=== PATIENT | female | born 1965 | race Caucasian/White ===

== ENCOUNTER → 2020-01-11 18:07 | Outpatient (CLI) | payer OTHER, SELFPAY ==
--- NOTE | ~2020-01-11 | MM_ITS ---
EXAMINATION: MM screening elin BI w all HISTORY: Screening mammogram TECHNIQUE: Craniocaudal and mediolateral oblique 3-D tomosynthesis images were obtained and synthetic 2-D images were generated. CAD analysis was submitted and interpreted. COMPARISON: 11/04/2018, 05/27/2017 bilateral digital screening mammogram examinations BREAST PARENCHYMAL COMPOSITION: There are scattered areas of fibroglandular density. FINDINGS: There are multiple benign calcified oil cysts in the inner right breast . Possible spiculated high density 6 mm lesion in the outer mid left breast (craniocaudal Tomosynthesis image 45/74) versus summation shadow.. Diagnostic left mammogram and left breast ultrasound examinat ion are recommended. Otherwise there is no evidence of suspicious mass, calcification, or architectural distortion to sugg est malignancy in either breast. There has been no other suspicious interval change. IMPRESSION: 1. Possible 6 mm spiculated mass in the outer mid left breast 2. Diagnostic left mammogram and left breast ultrasound examination are recommended. BI-RADS Category 0: Incomplete: Needs additional imaging evaluation. Reviewed, dictated and finalized at location A. ER BEARING INSPECTOR IMPRESSION: 1. Possible 6 mm spiculated mass in the outer mid left breast 2. Diagnostic left mammogram and left breast ultrasound examination are recomme nded. BI-RADS Category 0: Incomplete: Needs additional imaging evaluation.
== END ==
PROVIDERS: PCP Family Medicine; Visit Provider Obstetrics & Gynecology Gynecology
DX: Z12.31 Encounter for screening mammogram for malignant neoplasm of breast (principal); R92.8 Other abnormal and inconclusive findings on diagnostic imaging of breast
CPT/HCPCS: 77063; 77067

== ENCOUNTER → 2020-02-01 08:16 | Outpatient (CLI) | payer OTHER, SELFPAY ==
--- NOTE | ~2020-02-01 | MMUS_ITS ---
EXAMINATION: MM diagnostic mammo unilat LT, US breast LT limited HISTORY: Possible 6 mm spiculated mass suggested in the outer mid left breast on 01/11/2020 bilateral digital screening mammogram TECHNIQUE: Additional 3-D tomosynthesis images of the left breast were performed and synthetic 2-D im ages were generated. CAD analysis was submitted and interpreted. High resolution upper outer quadrant left breast ultrasound was performed. COMPARISON: 01/11/2020 bilateral digital screening mammogram FINDINGS: MAMMOGRAPHIC FINDINGS: A 5 mm subtle focal irregularity is suggested in the upper outer quadrant of the left breast (cranioc audal Tomosynthesis image 38/68). ULTRASOUND: 2:00 3 cm from nipple: There is a focal circumscribed approximately 2 x 2.6 x 4 mm opacity without in ternal vascularity or suspicious shadowing. IMPRESSION: 1. Probably benign mammographic and ultrasound findings, upper outer quadrant 2. 6 month diagnostic left mammogram and upper outer quadrant left breast ultrasound examination are recommended. BI-RADS category 3, probably benign findings. Reviewed, dictated and finalized at location A. D CERTIFIED ARTS THERAPIST IMPRESSION: 1. Probably benign mammographic and ultrasound findings, upper outer quadrant 2. 6 month diagnostic left mammogram and upper outer quadrant left breast ultra sound examination are recommended. BI-RADS category 3, probably benign findings.
== END ==
PROVIDERS: PCP Family Medicine; Visit Provider Obstetrics & Gynecology Gynecology
DX: R92.8 Other abnormal and inconclusive findings on diagnostic imaging of breast (principal)
CPT/HCPCS: 76642; 77065

== ENCOUNTER → 2020-07-13 07:50 | Outpatient (CLI) | payer BC, SELFPAY ==
--- NOTE | ~2020-07-13 | MMUS_ITS ---
EXAMINATION: MM diagnostic elin LT w all, US breast LT limited HISTORY: Follow-up left breast mass TECHNIQUE: Additional 3-D tomosynthesis images of the left breast were performed and synthetic 2-D im ages were generated. CAD analysis was submitted and interpreted. High resolution Limited left breast ultrasound was performed. COMPARISON: Comparison to multiple prior studies sequentially, with oldest reviewed study dated 04/23. BREAST PARENCHYMAL COMPOSITION: Breast composed of scattered areas of fibroglandular density. FINDINGS: MAMMOGRAPHIC FINDINGS: There are no suspicious masses, calcifications or architectural distortion in the left breast to sugg est malignancy. Stable left axillary lymph nodes. ULTRASOUND: Limited left breast ultrasound: At 2:00, 3 cm from the nipple, there is a small hypoechoic 3 mm mass unchanged from prior examination, likely benign. IMPRESSION: 1. Probable benign 3 mm left breast mass at 2:00, 3 cm from the nipple. 2. Recommend 6 month follow-up left breast ultrasound and bilateral screening mammogram. BI-RADS category 3, probably benign findings. Reviewed, dictated and finalized at location A. IMPRESSION: 1. Probable benign 3 mm left breast mass at 2:00, 3 cm from the nipple. 2. Recommend 6 month follow-up left breast ultrasound and bilateral screening m ammogram. BI-RADS category 3, probably benign findings.
== END ==
PROVIDERS: Visit Provider Obstetrics & Gynecology Gynecology
DX: R92.8 Other abnormal and inconclusive findings on diagnostic imaging of breast (principal)
CPT/HCPCS: 76642; 77061; 77065; G0279

== ENCOUNTER → 2021-01-18 07:59 | Outpatient (CLI) | payer BC, SELFPAY ==
--- NOTE | ~2021-01-18 | MM_ITS ---
EXAMINATION: MM screening elin BI w all HISTORY: Screening TECHNIQUE: Craniocaudal and mediolateral oblique 3-D tomosynthesis images were obtained and synthetic 2-D images were generated. CAD analysis was submitted and interpreted. COMPARISON: Comparison to multiple prior studies sequentially, with oldest reviewed study dated 05/04. BREAST PARENCHYMAL COMPOSITION: Breast composed of scattered areas of fibroglandular density. FINDINGS: There is no evidence of suspicious mass, calcification, or architectural distortion to sugg est malignancy in either breast. There has been no suspicious interval change. IMPRESSION: 1. No mammographic evidence of malignancy. 2. Recommend routine screening mammography in one year. BI-RADS Category 1: Negative Reviewed, dictated and finalized at location A. TRY PATHOLOGIST
--- NOTE | ~2021-01-18 | US_ITS ---
US breast LT limited INDICATION: Follow-up left breast mass TECHNIQUE: Dedicated left limited breast ultrasound COMPARISON: 07/13/2020 FINDINGS: The left breast is composed of normal heterogeneous echotexture without focal solid or cyst ic mass. IMPRESSION: 1: Normal limited left breast ultrasound. BI-RADS CATEGORY 1 - NEGATIVE Reviewed, dictated and finalized at location A. PEDDLER
== END ==
PROVIDERS: Visit Provider Obstetrics & Gynecology Gynecology
DX: Z12.31 Encounter for screening mammogram for malignant neoplasm of breast (principal); R92.8 Other abnormal and inconclusive findings on diagnostic imaging of breast
CPT/HCPCS: 76642; 77063; 77067

== ENCOUNTER 2021-05-27 08:44 | Outpatient (CLI) | payer BC, SELFPAY ==
--- NOTE | ~2021-05-27 | DEXA_ITS ---
Bone Density Report Name: BRIANNA MATTHEWS Age: 55 Sex: Female Ethnicity: White Date of : 1965 Indication: postmenopausal; screening for osteoporosis; parental hip fracture; Referring Provider: CAM RAMOS Study: Bone densitometry was performed. Exam Date: May 27, 2021 Accession number: [id number] Bone Density: Region BMD T-score Z-score Classification AP Spine(L1-L4) 1.057 0.1 1.3 Normal Femoral Neck (Left) 0.766 -0.7 0.4 Normal Total Hip (Left) 0.899 -0.4 0.4 Normal Femoral Neck (Right) 0.789 -0.5 0.6 Normal Total Hip (Right) 0.895 -0.4 0.4 Normal Total Hip Mean 0.897 -0.4 0.4 Normal World Health Organization criteria for BMD impression classify patients as: Normal (T-score at or above -1.0), Osteopenia (T-score between -1.0 and -2.5), or Osteoporosis (T-score at or below -2.5). 10-year Fracture Risk: FRAX not reported because: All T-scores for Spine Total, Hip Total, Femoral Neck at or above -1.0 Clinical Information Provided by Patient: Parent has had a hip fracture Has used the following medications: HRT (i.e. estrogen/hormone therapy) Patient maximum height was 64 Menopause Age: 51 Drinks caffeinated beverages Onset of menses at age 11 Number of children 1 Impression: The patient has normal bone mass. The patient has risk factors, including: parental hip fracture. Discussion: BONE DENSITY IS ABOVE THE MINIMUM DESIRABLE LEVEL AT ALL SKELETAL SITES TESTED. This patient?s bone mineral density is above the minimum desirable level (T-score -1.0 or better) at all sites measured. The patient should follow a healthful lifestyle (good nutrition with adequate calcium and vitamin D, and appropriate weight-bearing exercise). Follow-Up: Consider repeating this study in 5 years or sooner if there is some new clinical indication. Reported by: AMPARO on 05/29/2021 2:49:00 PM. Reviewed, dictated and finalized at location AT[place]
== END 2021-05-27 08:45 | disposition home or self-care (01) ==
PROVIDERS: Visit Provider Obstetrics & Gynecology Gynecology
DX: Z78.0 Asymptomatic menopausal state (principal)
CPT/HCPCS: 77080

== ENCOUNTER → 2022-03-23 13:42 | Outpatient (CLI) | payer BC, SELFPAY ==
--- NOTE | ~2022-03-23 | MM_ITS ---
EXAMINATION: MM screening elin BI w all HISTORY: Screening mammogram TECHNIQUE: Craniocaudal and mediolateral oblique 3-D tomosynthesis images were obtained and synthetic 2-D images were generated. CAD analysis was submitted and interpreted. COMPARISON: 01/18/2021 bilateral screening mammogram and limited left breast ultrasound examination 07/13/2020 diagnostic left mammogram and limited left breast ultrasound 02/01/2020 diagnostic left mammogram and limited left breast ultrasound 01/11/2020 bilateral screening mammogram BREAST PARENCHYMAL COMPOSITION: There are scattered areas of fibroglandular density. FINDINGS: There is no evidence of suspicious mass, calcification, or architectural distortion to sugg est malignancy in either breast. There has been no suspicious interval change. IMPRESSION: 1. No mammographic evidence of malignancy. 2. Recommend routine screening mammography in one year. BI-RADS Category 1: Negative Reviewed, dictated and finalized at location A. AL FUNDS AGENT
== END ==
PROVIDERS: PCP Family Medicine; Visit Provider Obstetrics & Gynecology Gynecology
DX: Z12.31 Encounter for screening mammogram for malignant neoplasm of breast (principal)
CPT/HCPCS: 77063; 77067

== ENCOUNTER 2022-07-10 00:16 | Day surgery (SDC) | payer BC, SELFPAY ==
[2022-07-10 08:41] VITALS: BP 140/74; PULSE 68; RESP 16; TEMP 36.3; O2SAT 100
[2022-07-10] MEDS: LACTATED RINGERS 1,000 ML 150 ML IV CONT (08:56)
--- NOTE | 2022-07-10 08:59 | P.PNAN_ITS ---
Anes - Initial Pre Proc Eval Procedure: Operation Date: 07/10/22 10:00 Proposed Procedures p Esophagogastroduodenoscopy - Anjel Palacio MD Date/Time: 07/10/22 08:59 Surgeon: Anjel Palacio MD Pre Op Diagnosis: LUQP, belching,abdominal distension,heartburn Patient Data Age: 56 Gender: F Height: 1.63 m Weight: 79.1 kg Last Vital Signs Temp 36.3 C L 07/10/22 08:41 Pulse 68 07/10/22 08:41 Resp 16 07/10/22 08:41 BP 140/74 07/10/22 08:41 Pulse Ox 100 07/10/22 08:41 O2 Del Method Room Air 07/10/22 08:41 Allergies Allergy/AdvReac Type Severity Reaction Status Date / Time Sulfa (Sulfonamide Allergy Intermediate Rash Verified 07/10/22 08:40 Antibiotics) Home Medications Medication Instructions Recorded Confirmed Type lisinopril 20 mg tablet 20 mg PO DAILY 06/14/22 06/22/22 History norethindrone 0.4 mg-ethinyl 1 tablet PO DAILY 06/14/22 06/22/22 History estradiol 35 mcg tablet multivit with minerals-iron 18 1 tablet PO DAILY 06/22/22 06/22/22 History mg-folic ac 400 mcg-vit K 25 mcg tablet (Adults Multivitamin) omega 3-zzt-grx-fish oil 1,200 mg 1 cap PO DAILY 06/22/22 06/22/22 History (144 mg-216 mg) capsule (Fish Oil) Patient hx anesthesia problems: none Family hx anesthesia problems: none Results Review: All pre-operative results and documents have been reviewed as part of the pre- operative evaluation. [facility] Past Medical History Medical History Belching HTN (hypertension) Surgical History Surgical History [place] teeth extracted Family History Family History Father Family history of elevated blood lipids Family history of heart disease in male family member before age 55 Other Family history of cardiovascular disease Family history of malignant neoplasm Social History Social History Smoking status: Never smoker Smoking end date: 02/11/89 Alcohol intake: current Drinks per week: 2 Alcohol use details: DRINKS Substance use: never Substance use type: does not use Living arrangements: with family Spiritual care concerns: No Anes - Eval Final PreProcedure Day of Procedure 07/10/22 08:59 Patient weight: overweight Heart: regular rate and rhythm Lungs: clear to auscultation Airway: Mallampati scale class II Neurological: alert and oriented Last oral intake: >/= 8 hours ASA classification: II Emergent: no Anesthetic plan: proceed Anesthesia type and monitoring: general GIVS and standard monitoring Results Review: All pre-operative results and documents have been reviewed as part of the pre- operative evaluation. Informed Consent: The patient's anesthetic plan and its attendant risks and benefits were discussed with the patient/family/POA. Questions were solicited and answers provided to the satisfaction of the patient/family/POA.
--- NOTE | 2022-07-10 09:02 | WPDHPUPDATE1 ---
History and Physical Update Update Date/Time: 07/10/22 09:02 patient presents for EGD. Has complaints of left upper quadrant gas, belching, acid regurgitation. Dyspepsia. She has not yet tried lrdy-gbw-lqgbmsn antacids nor Pepcid nor Prilosec type medications. EGD requested because of ongoing pain. These medications suggested to the patient today. History and Physical has been reviewed, including an updated exam of the patient. There are NO changes in the patient's condition. Risks, benefits, and alternatives have been discussed and questions answered. Patient agrees to proceed with procedure.
[2022-07-10 09:19] VITALS: BP 95/48; PULSE 65; RESP 17; O2SAT 97
[2022-07-10 09:29] VITALS: BP 101/54; PULSE 63; RESP 19; O2SAT 99
[2022-07-10 09:39] VITALS: BP 120/71; PULSE 62; RESP 16; O2SAT 99
== END 2022-07-10 09:45 | disposition home or self-care (01) ==
PROVIDERS: PCP Family Medicine; Visit Provider Internal Medicine Gastroenterology
PROC: 0DJ08ZZ Inspection of Upper Intestinal Tract, Via Natural or Artificial Opening Endoscopic (ICD-10-PCS; CPT 43235; principal; 2022-07-10 10:00)
DX: K30 Functional dyspepsia (principal); R14.2 Eructation; K21.9 Gastro-esophageal reflux disease without esophagitis; I10 Essential (primary) hypertension
CPT/HCPCS: 43239; 87081; J2704; J7120

== ENCOUNTER 2023-01-14 08:15 | Observation (INO) | payer BC, SELFPAY ==
[2023-01-14] VITALS (28 sets, daily range): BP systolic 117–165; BP diastolic 57–88; PULSE 67–97; RESP 12–25; TEMP 36.4–37.1; O2SAT 97–100
--- NOTE | ~2023-01-14 | XR_ITS ---
EXAMINATION: XR chest 1V portable 01/14/2023 09:35 INDICATION: Stroke PROCEDURE: AP portable chest COMPARISON: No prior studies for comparison. FINDINGS: The lungs are clear. The cardiomediastinal silhouette is within normal limits. There are no pleural effusions. There is no pneumothorax suspected. IMPRESSION: 1: NO ACUTE CARDIOPULMONARY DISEASE. Reviewed, dictated and finalized at location B. TUBE RELEASER
--- NOTE | ~2023-01-14 | MR_ITS ---
EXAMINATION: MR brain/brain stem wo/w con DATE: 01/15/2023 08:14 CATHODE RAY TUBE SALVAGE PROCESSOR INDICATION: Stroke TECHNIQUE: Magnetic resonance imaging (MRI) of the brain and brainstem was performed without and with 10 cc MultiHance intravenous contrast. Sequences included sagittal and axial T1-weighted SE, axial d iffusion-weighted FS SE, axial T2*-weighted GRE, axial T2-weighted FLAIR Propeller, and axial T2-weig hted Propeller. Apparent diffusion coefficient (ADC) maps were created. COMPARISON: CTA brain/carotid dated 01/14/2023 FINDINGS: The brain volume and ventricular system are within normal limits. The brain parenchymal si gnal intensity pattern and perez/white matter is normal and there is no evidence of hemorrhage, space occupying masses or infarctions. The flow signal voids of the major arterial structures about the nikolai of Devi and within the elier r dural venous sinuses appear grossly unremarkable and patent. The seventh and eighth cranial nerve complexes are normal. The mid sagittal image demonstrates a normal craniovertebral junction and hany us callosum. Mild mucosal thickening left maxillary sinus. No abnormal contrast enhancement was appreciated. IMPRESSION: 1: Unremarkable MRI of the brain. Reviewed, dictated and finalized at location D. ODE RAY TUBE SALVAGE PROCESSOR
--- NOTE | ~2023-01-14 | CT_ITS ---
CT ANGIOGRAM NECK AND HEAD History: Altered mental status, CVA. Technique: Axial noncontrast imaging of the brain was performed. Serial spiral axial images through t he head and neck were then obtained during arterial phase IV injection of 100 cc of Omnipaque 350. 3- D postprocessing and MIP images were then reconstructed on the remote workstation. Dose reduction terri hnique was used on this scan by utilizing automated exposure control and iterative reconstruction terri hnique. The dose-length product (DLP) was 1608.91 mGy-cm. CTA neck findings: Bilateral vertebral arteries are patent. Bilateral common carotid, internal carot id, and external carotid arteries are patent. No large vessel occlusion. There is calcified plaque at the proximal right internal carotid artery, with approximately 70% degree stenosis. There is minimal soft plaque at the proximal left internal carotid artery, without stenosis. The proximal right inter nal carotid artery demonstrates 70% stenosis relative to the normal distal artery lumen diameter. The proximal left internal carotid artery demonstrates 0% stenosis relative to the normal distal artery lumen diameter. CTA head findings: Distal vertebral arteries, basilar artery, and posterior cerebral arteries are pat ent. Distal internal carotid arteries, middle cerebral arteries, and anterior to arteries are patent. No large vessel occlusion. No stenosis or aneurysm. Axial noncontrast imaging of the brain demonstrates no significant abnormality. No intracranial hemor rhage, acute infarct, or mass lesion identified. Rosales-white distinction is preserved. Ventricles and subarachnoid spaces are unremarkable. Orbits are unremarkable. Paranasal sinuses and mastoid air cell s are clear. Impression: No abnormality on noncontrast imaging of the brain. 70% stenosis at the proximal right internal carotid artery related to calcified plaque. Case discussed with Dr. Ma at 8:45 AM on 01/14/2023. Reviewed, dictated and finalized at location [facility] Impression: No abnormality on noncontrast imaging of the brain. 70% stenosis at the proximal right internal carotid artery related to calcified plaque. Case discussed with Dr. Ma at 8:45 AM on 01/14/2023.
--- NOTE | 2023-01-14 08:27 | ECG_ITS ---
Measurements Intervals Ransom Rate: 84 P: 78 SC: 138 QRS: 6 QRSD: 90 T: 40 QT: 366 QTc: 434 Interpretive Statements SINUS RHYTHM POSSIBLE LEFT ATRIAL ENLARGEMENT [-0.1mV P-WAVE IN V1/V2] LOW QRS VOLTAGE IN PRECORDIAL LEADS [QRS DEFLECTION < 1.0 mV IN CHEST LEADS] BORDERLINE ECG NO PREVIOUS ECG AVAILABLE FOR COMPARISON Electronically Signed On 01-14-2023 15:15:18 [facility] by Andrea Walsh M.D.
--- NOTE | 2023-01-14 08:28 | ED.GENADULT ---
HPI - General Adult General Chief complaint: Neuro Symptoms/Deficit Stated complaint: syncope Time Seen by Provider: 01/14/23 08:27 History of Present Illness HPI narrative: Patient is a 57-year-old female who presents to the ER after having concerning symptoms for possible CVA. Patient woke up and was doing her morning routine. She had made coughing had just started in aerobic exercise when her heard her collapse to the ground. This occurred at 7:50 a.m.. He reports patient was lying on the ground for 5 minutes with her eyes open just staring and she was unresponsive. She then was able to wake back up and get to a chair. He reports she was having confusion for approximately 20 minutes after that. She reports that she is currently having some blurred vision in both eyes and she is wearing her contacts in typically her vision is not blurred. She has no weakness or numbness to any arm or leg. endorses slurred speech that has since resolved. Patient has been having some intermittent dizziness over last couple days. This is atypical for her. She denies any heart palpitations or chest discomfort or exertional symptoms. Related Data Home Medications Medication Instructions Recorded Confirmed lisinopril 20 mg tablet 20 mg PO DAILY 06/14/22 01/14/23 norethindrone 0.4 mg-ethinyl 1 tablet PO DAILY 06/14/22 01/14/23 estradiol 35 mcg tablet multivit with minerals-iron 18 1 tablet PO DAILY 06/22/22 01/14/23 mg-folic ac 400 mcg-vit K 25 mcg tablet (Adults Multivitamin) omega 0-lst-qmy-fish oil 1,200 mg 1 cap PO DAILY 06/22/22 01/14/23 (144 mg-216 mg) capsule (Fish Oil) Allergies Allergy/AdvReac Type Severity Reaction Status Date / Time Sulfa (Sulfonamide Allergy Intermediate Rash Verified 07/10/22 08:40 Antibiotics) Review of Systems Review of Systems: All systems reviewed & are unremarkable except as noted in HPI and below Constitutional: Constitutional: Denies chills, Denies fatigue and Denies fever(s) ENT: Denies nasal congestion and Denies sore throat Cardiovascular: Cardiovascular: Denies chest pain, Denies rapid heart rate and Denies radiating jaw, neck or arm pain Respiratory: Respiratory: Denies cough and Denies dyspnea Gastrointestinal: Gastrointestinal: Denies abdominal pain, Denies nausea and Denies vomiting Integumentary/Breasts: Skin/Breast: Reports system reviewed and no additional complaints, except as docu Neurologic: Reports syncope, Denies headache(s), Denies focal weakness and Denies numbness Comments: dysarthria, blurred vision PMFSH Past Medical History Medical History (Updated 01/14/23 @ 19:23 by Tima Ma MD) Hypertension Surgical History Surgical History (Updated 01/14/23 @ 13:58 by Becky Luong PA-C) History of esophagogastroduodenoscopy History of wisdom tooth extraction Family History Family History Father Family history of heart disease in male family member before age 55 Family history of elevated blood lipids Family history of cardiovascular disease Other Family history of malignant neoplasm Social History Social History (Updated 01/14/23 @ 13:59 by Becky Luong PA-C) Social History: Surrogate medical decision maker: Severino Hutchison, spouse. Code status: Full code. Smoking packs per day: 0.5 Smoking cigarettes per day: 10.0 Years smoked: 4 Smoking pack-years: 2.00 Smoking status: Former smoker Tobacco type: cigarettes Smoking end date: 02/11/89 Alcohol intake: current Drinks per week: 1 Substance use: never Substance use type: does not use Lack of Transportation: No Lack of Food: Never True Current Housing: I Have Housing Concerned About Future Housing: No Difficulty Paying Gas/Electric Bills: No Difficulty Paying for Meds: No Currently Unemployed: No Education: Bachelor's Degree Difficulty w/ Childcare or F
[2023-01-14 08:31] LABS: Glucose Point of Care 88 mg/dl (65-105)
[2023-01-14 08:39] LABS: Estimated Glomerular Filt Rate > 60
[2023-01-14 08:40] LABS: Basophils Absolute Auto 0.1 K/mm3 (0.0-0.1); Basophils Percent Auto 0.7 % (0.2-1.2); Eosinophils Absolute Auto 0.1 K/mm3 (0-0.3); Eosinophils Percent Auto 1.4 % (0-4.4); Hematocrit 45.5 % (37.0-47.0); Hemoglobin 15.2 g/dL (12.0-15.0); Immature Granulocyte Absolute 0.05 K/mm3 (0.00-0.031); Immature Granulocyte Percent A 0.7 % (0-0.5); Lymphocytes Absolute Auto 1.95 K/mm3 (0.9-3.2); Mean Corpuscular HGB Conc 33.4 g/dl (32-36); Mean Corpuscular Hemoglobin 29.9 pg (26-34); Mean Corpuscular Volume 89.4 fl (80-100); Mean Platelet Volume 9.8 fl (7.4-10.4); Monocytes Absolute Auto 0.5 K/mm3 (0.1-0.6); Monocytes Percent Auto 7.6 % (2.6-8.5); Neutrophils Absolute Auto 4.3 K/mm3 (1.3-6.7); Neutrophils Percent Auto 61.6 % (45.5-73.1); Platelet Count Result 364 k/mm3 (150-375); Red Blood Count 5.09 M/mm3 (4.2-5.4); Red Cell Distribution Width 12.2 % (11.5-14.5)
[2023-01-14 08:50] LABS: INR 0.9; Prothrombin Time 12.1 Seconds (11.1-14.7)
[2023-01-14 08:53] LABS: Alanine Aminotransferase 34 U/L (6-35); Albumin Level 4.7 g/dL (3.5-5.1); Alkaline Phosphatase 73 U/L (38-126); Anion Gap 10 mmol/L (8-16); Aspartate Amino Transferase 31 U/L (14-36); Bilirubin,Total 0.4 mg/dL (0.2-1.3); Blood Urea Nitrogen 14 mg/dL (7-17); Calcium 9.5 mg/dL (8.4-10.2); Carbon Dioxide 24 mmol/L (22-30); Chloride 103 mmol/L (98-107); Estimated Glomerular Filt Rate > 60; Glucose 101 mg/dL (65-110); Potassium 4.4 mmol/L (3.4-5.0); Sodium 137 mmol/L (137-145)
[2023-01-14 09:04] LABS: Troponin I < 0.012 ng/mL (0.000-0.034)
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
[2023-01-14 10:44] LABS: Appearance Urine Clear (Clear); Bilirubin Urine Negative (Negative); Blood Urine Negative (Negative); Color Urine Yellow (Yellow); Glucose Urine UA Negative (Negative); Ketones Urine Negative (Negative); Leukocyte Esterase Ur Negative LEU/UL (Negative); Nitrate Urine Negative (Negative); Protein Urine Negative (Negative); Specific Grav Ur 1.022 (1.001-1.035); Urobilinogen Urine 0.2 mg/dL (<2.0)
[2023-01-14 11:13] LABS: Add Urine Microscopic? NO
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
--- NOTE | 2023-01-14 13:54 | PM.IMHP ---
H&P: HPI History of Present Illness Date/Time: 01/14/23 13:00 Chief Complaint: Syncope. Narrative: This is a 57-year-old female with hypertension and GERD who presented to the emergency department via private vehicle from home for evaluation after syncopal episode. The patient provides the following history and her provides additional information, with the patient's permission. She felt fine when she got up this morning and after having some coffee she started doing her aerobic exercise routine. heard her fall and when he entered the room the patient was lying on the ground with her eyes open but unresponsive. She was drooling from both sides of the mouth as well. This lasted upwards of 5 minutes and when she finally came to she was able to get herself into the chair with help. She seemed to be confused for approximately 20 minutes there after and she reported to her that she had blurry vision in both eyes. He thought her speech seemed slurred as well though that has since resolved. She denies antecedent symptoms prior to the episode today but she does note that on Saturday she was feeling lightheaded and woozy much of the day. She has not had chest pain, pleuritic pain, palpitations, sensations of racing heart, or shortness of breath. There were no reports of seizure-like activity and no evidence of tongue bite or bowel or bladder incontinence. She denies vertigo, facial droop, focal weakness, paresthesias. She has been under a lot of stress recently. She has been sleeping as per usual. No recent change in medications. Of note the patient her had upper respiratory symptoms a couple of weeks ago and she just started feeling back to normal within the last several days. In the ED: Vital signs have been stable since arrival. CMP, CBC, and troponin were all pretty unremarkable. Urinalysis was negative. CTA of the head and neck showed no acute findings though 70% stenosis was noted at the proximal right internal carotid artery. EKG showed sinus rhythm with possible left atrial enlargement, low QRS voltage in precordial leads, and a QTC of 434. She is being admitted in this setting for close monitoring and further workup. Review of Systems Review of Systems: Twelve systems were reviewed and are negative except for as per HPI. [facility] Past Medical History Medical History Hypertension Surgical History Surgical History History of esophagogastroduodenoscopy History of wisdom tooth extraction Family History Family History Father Family history of heart disease in male family member before age 55 Family history of elevated blood lipids Family history of cardiovascular disease Other Family history of malignant neoplasm Social History Social History Social History: Surrogate medical decision maker: Severino Kianna, spouse. Code status: Full code. Smoking packs per day: 0.5 Smoking cigarettes per day: 10.0 Years smoked: 4 Smoking pack-years: 2.00 Smoking status: Former smoker Tobacco type: cigarettes Smoking end date: 02/11/89 Alcohol intake: current Drinks per week: 1 Substance use: never Substance use type: does not use Lack of Transportation: No Lack of Food: Never True Current Housing: I Have Housing Concerned About Future Housing: No Difficulty Paying Gas/Electric Bills: No Difficulty Paying for Meds: No Currently Unemployed: No Education: Bachelor's Degree Difficulty w/ Childcare or Family Care: No Spiritual care concerns: No Meds Home Medications and Allergies Home Medications Medication Instructions Recorded Confirmed Type lisinopril 20 mg tablet 20 mg PO DAILY 06/14/22 01/14/23 History norethindrone 0.4 mg-ethinyl 1
--- NOTE | 2023-01-14 18:22 | ADMGEN ---
This patient, Ambreen Hutchison, was admitted to 2 Medical Room 260-. Patient/family oriented to hospital policies and general routines including ID bracelet, bed and alarms, visiting hours, pain management, procedures, bathroom and other care routines, personal items, smoking policy, room service/diet, and visiting hours. Information on how to activate the Rapid Response Team has been discussed. Patient/Family are encouraged to report perceived risks to care and to ask questions if they do not understand what they are told or what they should do.
[2023-01-14 23:51] LABS: D Dimer 0.32 ug/mL (<0.48)
[2023-01-15] VITALS (16 sets, daily range): BP systolic 121–144; BP diastolic 49–83; PULSE 64–80; RESP 16–18; TEMP 35.6–37.1; O2SAT 97–100
[2023-01-15 06:09] LABS: Cholesterol 180 mg/dL (0-200); HDL Direct 51 mg/dL; Triglycerides 70 mg/dL (<150)
[2023-01-15 06:19] LABS: LDL Cholesterol Direct 93 mg/dL
--- NOTE | 2023-01-15 07:35 | PCNEURO ---
Attempted EEG this AM but patient not in room. Patient down in MRI.
--- NOTE | 2023-01-15 07:41 | PM.IMPN ---
Progress Note: A&P Assessment and Plan (1) Syncope: Code(s): R55 - Syncope and collapse Status: Acute Assessment and Plan: 01/15/23: patient had a syncopal episode at home doing aerobic exercise routine. heard her fall and found her lying on the floor unresponsive with her eyes open and he reported drooling. This episode lasted for about 5 minutes when she finally became responsive however she remained confused for the next 20 minutes and she reported blurry vision and slurred speech. Neurology consulted plan today for EEG and echocardiogram Head and neck is CTA revealed 70% stenosis at the proximal right internal carotid artery related to calcified plaque, no abnormality on noncontrast imaging of the brain. continue neuro checks q.4h continue with cardiac monitoring obtain orthostatic blood pressures Q shift (2) Stenosis of right carotid artery: Code(s): I65.21 - Occlusion and stenosis of right carotid artery Status: Acute Assessment and Plan: see above (3) Hypertension: Code(s): I10 - Essential (primary) hypertension Status: Acute Assessment and Plan: 01/15/23: blood pressures ranging 125/62 to 130/58 patient was continued on her lisinopril 20 mg p.o. daily (4) GERD (gastroesophageal reflux disease): Code(s): K21.9 - Gastro-esophageal reflux disease without esophagitis Status: Acute Assessment and Plan: 01/15/2023: Protonix 40 mg p.o. daily ordered (5) Situational stress: Code(s): F43.9 - Reaction to severe stress, unspecified Status: Acute Assessment and Plan: 01/15/2023: Patient and report that there has been some situational stress over the last 3 months going on in the family. states that his son which is the patient's stepson has been lashing out at the patient and the son is not allowing them to see their grandchildren which has been negatively affecting the patient. Patient reports that Saturday there was another round situational stress and after that encounter she was lightheaded and dizzy but recovered completely. As has been told me the story of everything that is been going on, patient became very tearful in the room and states that she is very overwhelmed and it is very stressful. Will go ahead and start Cymbalta 30 mg daily as she has a primary care physician that she can follow up with for continue treatment of her situational stress. Also spoke with case briefer about setting her up with some outpatient counseling as a continue to enter this. Time Spent With Patient Time with patient: Greater than 35 minutes Subjective Date/time seen: 01/15/23 07:41 Interval history: This is a 57 year old female who presented to the hospital on 01/14/23 for evaluation of syncopal episode while doing aerobic exercise routine. heard her fall and found her on the ground with eyes open but she was unresponsive and drooling. This episode lasted for about 5 minutes. She had confusion after she became responsive for an additional 20 minutes. She had blurred vision, slurred speech. Work up in the hospital included head and neck CTA which revealed no abnormality on noncontrast imaging of the brain, 70% stenosis at the proximal right internal carotid artery related to calcified plaque. Chest x-ray was negative for any acute cardiopulmonary disease. Brain MRI was obtained and resulted as normal. EKG shown NSR with rate of 84, QTc 434 Labs were all essentially unremarkable on CBC, Coags, and CMP. Troponin was negative, D-dimer 0.32, and lipid panel was normal. UA was obtained and was normal. On examination today patient is alert and oriented x3, lying in the bed. is at the bedside. Patient denies any lightheadedness, dizziness, headache, vision changes, nausea, vomiting, diarrhea, abdominal pain, fever, chills, shortness of breath, or chest pain. did voice that the patient has bee
[2023-01-15 08:01] LABS: Hematocrit 39.9 % (37.0-47.0); Hemoglobin 13.3 g/dL (12.0-15.0); Mean Corpuscular HGB Conc 33.3 g/dl (32-36); Mean Corpuscular Hemoglobin 30.1 pg (26-34); Mean Corpuscular Volume 90.3 fl (80-100); Mean Platelet Volume 10.5 fl (7.4-10.4); Platelet Count Result 332 k/mm3 (150-375); Red Blood Count 4.42 M/mm3 (4.2-5.4); Red Cell Distribution Width 12.3 % (11.5-14.5); White Blood Count 7.3 K/mm3 (4.5-10.0)
[2023-01-15 08:12] LABS: Alanine Aminotransferase 26 U/L (6-35); Albumin Level 3.7 g/dL (3.5-5.1); Alkaline Phosphatase 64 U/L (38-126); Anion Gap 9 mmol/L (8-16); Aspartate Amino Transferase 32 U/L (14-36); Bilirubin,Total 0.5 mg/dL (0.2-1.3); Blood Urea Nitrogen 12 mg/dL (7-17); Calcium 8.9 mg/dL (8.4-10.2); Carbon Dioxide 24 mmol/L (22-30); Chloride 106 mmol/L (98-107); Estimated CRCL calculation 78 ml/min; Estimated Glomerular Filt Rate > 60; Glucose 89 mg/dL (65-110); Potassium 4.1 mmol/L (3.4-5.0); Sodium 139 mmol/L (137-145)
[2023-01-15] MEDS: PANTOPRAZOLE 40 MG TABLET PO (08:50)
[2023-01-15] MEDS: lisinopriL 20 MG TABLET PO (08:51)
[2023-01-15] MEDS: PERFLUTREN LIPID MICROSPHERES 1.5 ML VIAL DILUTED TO 10 ML TOTAL VOLUME IV PUSH (12:06)
--- NOTE | 2023-01-15 13:47 | PC.NURSE ---
On 01/15/23, the student, [Bhavesh Wick], provided care and completed [facility] documentation on this patient. I have reviewed the student's documentation and agree with the findings.
--- NOTE | 2023-01-15 14:00 | ECHO_ITS ---
Patient Info Name: Ambreen Hutchison Age: 57 years : 1965 Gender: Female Ht: 64 in Wt: 181 lbs BSA: 1.95 m2 HR: 66 bpm BP: 125 / 62 mmHg Heart Rhythm: Sinus Rhythm Technical Quality: Fair Exam Date: 01/15/2023 11:26 AM Exam Location: Echo Lab Patient Status: Inpatient Admit Date: 01/14/2023 Staff Ordering Physician: Becky Luong PA-C Traffic Clerk: Noemi Cuevas RDCS Attending Provider: Giovany Paul MD Referring Physician: Ag HAWLEY; Exam Type: CA echo dop bubble study w con Study Info Indications - Carotid artery stenosis I10 - Essential (primary) hypertension R55 - Syncope and collapse Complete two-dimentional, color flow and Doppler transthoracic echocardiogram is performed with agitated saline and with contrast to opacify the left ventricle and to improve the delineation of the left ventricle endocardial borders. Contrast/Agitated Saline Contrast/Ag. Saline: Definity Amount: 2.00 ml Administered By: Noemi Cuevas RDCS Existing IV Access: Yes IV Access Condition: patent with no signs of infiltration Contrast/Ag. Saline: Agitated Saline Amount: 20.00 ml Administered By: Mary Kay Astorga RDCS Existing IV Access: Yes IV Access Condition: patent with no signs of infiltration Summary 1. Normal left ventricular size and function with good contractility of all segments. Ejection fraction is greater than 70%. Normal diastolic function. 2. No significant valve disease. 3. No evidence of intracardiac shunting during normal respiration and Valsalva maneuver by bubble study. 4. Somewhat technically difficult study. Definity echo contrast used. 5. Normal sinus rhythm. Left Ventricle Left ventricular chamber dimension is normal. Left ventricular systolic function is normal, estimated at >70%. There is no increased left ventricular wall thickness. Left ventricular septal wall motion is normal. The left ventricular diastolic function is normal. Right Ventricle Right ventricular chamber dimension is normal. Right ventricular systolic function is normal. Left Atria Left atrial chamber dimension is normal. Right Atria Right atrial chamber dimension is normal. Aortic Valve The aortic valve is trileaflet. There is no aortic valve sclerosis. There is no aortic valve stenosis. There is no aortic valve regurgitation. Pulmonic Valve The pulmonic valve is normal. There is no pulmonic valve stenosis. There is trace pulmonic regurgitation. Mitral Valve The mitral valve has normal leaflets. There is no mitral valve stenosis. There is no mitral valve regurgitation. Tricuspid Valve The tricuspid valve leaflets are normal. There is no significant tricuspid valve stenosis. There is trace tricuspid valve regurgitation. No pulmonary hypertension, estimated pulmonary arterial systolic pressure is 30 mmHg. Pericardium/Pleural The pericardium appears normal. There is no pericardial effusion. Inferior Vena Cava Normal inferior vena cava with >50% collapse upon inspiration consistent with Empty right atrial pressure, 10 mmHg. Aorta The aortic root size at the sinus of Valsalva is normal. The prox ascending aorta size is normal. Left Ventricular Outflow Tract Name Value Normal LVOT 2D
--- NOTE | 2023-01-15 14:43 | IVDEFINITY ---
Prior to administration of IV Definity the patient was educated on the risks and benefits of the imaging enhancing agent including potential adverse side effects. The patient verbalized understanding. Allergies were verified. No exclusion criteria were identified and at least one of the following inclusion criteria were met: 1) physician request, 2) patient technically difficult to image (per the [place] [employer] guidelines of two or more segments not discernable within the apical view), or 3) questionable left ventricular function. ?
[2023-01-15] MEDS: OMEGA 3 POLYUNSAT FATTY ACIDS 1 GM CAP PO (20:28)
[2023-01-15] MEDS: MULTIVITAMINS /C LUTEIN (CENTRUM SILVER) TABLET *BKC 1 TAB PO (20:28)
[2023-01-16] VITALS: PULSE 64
[2023-01-16 00:01] VITALS: BP 119/54; PULSE 69; RESP 18; TEMP 36.6; O2SAT 98
[2023-01-16 02:48] VITALS: BP 129/63; PULSE 67; RESP 20; TEMP 36.2; O2SAT 96
[2023-01-16 02:51] VITALS: BP 129/63; PULSE 67; RESP 20; TEMP 36.2; O2SAT 96
[2023-01-16 04:00] VITALS: PULSE 60
[2023-01-16 06:07] LABS: Hematocrit 39.9 % (37.0-47.0); Hemoglobin 13.3 g/dL (12.0-15.0); Mean Corpuscular HGB Conc 33.3 g/dl (32-36); Mean Corpuscular Hemoglobin 29.8 pg (26-34); Mean Corpuscular Volume 89.5 fl (80-100); Mean Platelet Volume 10.4 fl (7.4-10.4); Platelet Count Result 321 k/mm3 (150-375); Red Blood Count 4.46 M/mm3 (4.2-5.4); Red Cell Distribution Width 12.1 % (11.5-14.5); White Blood Count 6.8 K/mm3 (4.5-10.0)
[2023-01-16 06:20] LABS: Alanine Aminotransferase 24 U/L (6-35); Albumin Level 3.8 g/dL (3.5-5.1); Alkaline Phosphatase 63 U/L (38-126); Anion Gap 7 mmol/L (8-16); Aspartate Amino Transferase 23 U/L (14-36); Bilirubin,Total 0.5 mg/dL (0.2-1.3); Blood Urea Nitrogen 10 mg/dL (7-17); Calcium 9.1 mg/dL (8.4-10.2); Carbon Dioxide 26 mmol/L (22-30); Chloride 106 mmol/L (98-107); Estimated CRCL calculation 78 ml/min; Estimated Glomerular Filt Rate > 60; Glucose 91 mg/dL (65-110); Potassium 4.2 mmol/L (3.4-5.0); Sodium 139 mmol/L (137-145)
[2023-01-16] MEDS: lisinopriL 20 MG TABLET PO (08:29)
[2023-01-16] MEDS: PANTOPRAZOLE 40 MG TABLET PO (08:29)
--- NOTE | 2023-01-16 09:23 | WPDNEUROLOGY ---
Neurology EEG Report General Information Date of Study: 01/16/23 TEST eeg DIAGNOSIS possible seizures CONDITION OF RECORDING awake drowsy and sleep EEG NUMBER [id number] CLINICAL HISTORY patient was found unresponsive and drowsing with no active seizure at that particular time. EEG DESCRIPTION low voltage 15 to 18 hertz per 2nd beta activity seen admixed with waxing and waning posterior 9 to 11 hertz per 2nd alpha activity during drowsiness. Bilateral symmetrical sleep activity seen during sleep with normal and symmetrical sleep spindles. No evidence of paroxysmal activity is noted throughout the tracing. Non paroxysmal. Nonfocal. Nonlateralizing. IMPRESSION Normal record without evidence of any active seizures and also without evidence of any focal slow activity.
[2023-01-16 14:00] VITALS: BP 116/58; PULSE 72; RESP 14; TEMP 36.7; O2SAT 98
--- NOTE | 2023-01-16 14:54 | PM.DS ---
DS: Admitting Diagnosis Discharge Date 01/16/23 Admitting Diagnosis syncope DS: Discharge Diagnosis Discharge Diagnosis (1) Syncope: Code(s): R55 - Syncope and collapse Status: Acute (2) Stenosis of right carotid artery: Code(s): I65.21 - Occlusion and stenosis of right carotid artery Status: Acute (3) Hypertension: Code(s): I10 - Essential (primary) hypertension Status: Acute (4) GERD (gastroesophageal reflux disease): Code(s): K21.9 - Gastro-esophageal reflux disease without esophagitis Status: Acute (5) Situational stress: Code(s): F43.9 - Reaction to severe stress, unspecified Status: Acute DS: Summary Hospital Course Hospital Course: This is a 57-year-old female with a past medical history of hypertension and GERD the presented to the ED on 01/14/2023 due to evaluation after syncopal event. had found patient unconscious on the floor and foaming at the mouth after she was doing and anaerobic exercise routine. Patient was unconscious according to the for approximately 5 minutes when she came to and then afterwards she had some confusion. She admits to a lot of stress in her life that revolves around her family at this time. Urinalysis was negative. CBC CMP and troponin were all unremarkable. CTA of the head and neck showed 70% stenosis of the right internal carotid artery and she was started on aspirin, Plavix and atorvastatin. EKG showing left atrial moral enlargement and an echocardiogram was ordered. Echocardiogram revealing an EF of greater than 70%. Neurology consulted and recommended aspirin Plavix. EEG did not show any signs of seizure. Recommended follow-up with Neurology as an outpatient. Time Spent with Patient Time attestation: Total time spent providing and/or coordinating discharge services: Exam Narrative: GENERAL: Comfortable, no acute distress HENMT: moist mucous membranes EYES: EOM intact b/l NECK: no lymphadenopathy RESPIRATORY: clear to auscultation CARDIO: RRR GI: soft, nontender, bowel sounds present SKIN: no rashes EXTREMITIES: no edema, redness or tenderness DS: Data Data Completed and Pending Labs on day of discharge: Labs from last 24 hours 01/16/23 01/16/23 05:02 05:01 WBC 6.8 RBC 4.46 Hgb 13.3 Hct 39.9 MCV 89.5 MCH 29.8 MCHC 33.3 RDW 12.1 Plt Count 321 MPV 10.4 Sodium 139 Potassium 4.2 Chloride 106 Carbon Dioxide 26 Anion Gap 7 L BUN 10 Creatinine 0.70 Estim Creat Clear Calc 78 Estimated GFR > 60 Glucose 91 Calcium 9.1 Total Bilirubin 0.5 AST 23 ALT 24 Alkaline Phosphatase 63 Total Protein 7.0 Albumin 3.8 Discharge Plan Discharge Attending physician on discharge: Thierry Foster Consulting providers: Theodora Polk Discharging Clinician: Stephy Mortensen Patient Disposition: Home, Self-Care Activity: other - see discharge instructions Diet: heart healthy and low cholesterol Discharge Instructions: Please start daily aspirin and Plavix. Will start on atorvastatin due to carotid plaque. Recommend following up with vascular surgery as an outpatient. Can return to work in 1 week. Discharge disposition: Take medications as prescribed Monitor blood pressures Avoid social areas, you wear a mask when in social settings Encouraged to continue with yearly vaccinations Return to the emergency department if he developed sudden shortness of breath, chest pain, nausea, vomiting, upset stomach or intractable diarrhea Return to the emergency department if you develop fever greater than 100.4 Follow-up with the primary care physician within 1-2 weeks Thank you for choosing [facility] for your healthcare needs Patient Instructions: Antibiotic Form, Syncope (DC), Pain Management (DC), Carotid Artery Disease (DC) Stand Alone Forms: General Discharge Information, Work/School Release IP
--- NOTE | 2023-01-16 14:54 | WPDNEURCNPN ---
Assessment and Plan Assessment and plan (1) TIA (transient ischemic attack): Code(s): G45.9 - Transient cerebral ischemic attack, unspecified Status: Acute (2) Situational stress: Code(s): F43.9 - Reaction to severe stress, unspecified Status: Acute Plan 1 TIA 2 70% stenosis of the right internal carotid artery related to the calcified plaque. Patient will take aspirin 81mg daily and Plavix 75mg daily for the next 6 week she and her have been advised to follow with the vascular surgeon as well as with the primary physician and also continue the cholesterol lowering medication daily. 3. 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 Consult date: 01/16/23 HPI: Ambreen Hutchison is a 57 year old female Admitted to the hospital through the emergency room with information that she woke up and was doing her morning routine, had made her coffee, and just started in aerobic exercise when her heard her collapse to the ground around 7:50 a.m. she was found lying on the ground for 5minutes with her eyes open, staring and unresponsive she was able to wake up get to a chair but she continued to have confusion for approximately 20minutes after by the time she came to the emergency room she was complaining of blurred vision in both eyes though she was wearing her contact in both eyes and usually her vision was not blurred she did not complain weakness of numbness of upper or lower extremities otherwise did notice the slurred speech when it happened subsequently it resolved she has been experiencing intermittent dizziness over the last couple of days which was atypical for her she has no associated palpitations her medications as an outpatient included lisinopril 20mg daily, she is allergic to sulfa, she has smoked for 4 years 10 cigarettes per day but at present she is a former smoker and drinks only 1 drink per week initial physical exam in the emergency room was normal vital signs were normal except blood pressure 147/85 and routine lab was normal her head neck CTA revealed 70% stenosis proximal right internal carotid artery secondary to calcified plaque MRI came back completely normal. [facility] Past Medical History Medical History GERD (gastroesophageal reflux disease) Hypertension Surgical History Surgical History History of esophagogastroduodenoscopy History of wisdom tooth extraction Family History Family History Father Family history of heart disease in male family member before age 55 Family history of elevated blood lipids Family history of cardiovascular disease Other Family history of malignant neoplasm Social History Social History Social History: Surrogate medical decision maker: Severino Hutchison, spouse. Code status: Full code. Smoking packs per day: 0.5 Smoking cigarettes per day: 10.0 Years smoked: 4 Smoking pack-years: 2.00 Smoking status: Former smoker Tobacco type: cigarettes Smoking end date: 02/11/89 Alcohol intake: current Drinks per week: 1 Substance use: never Substance use type: does not use Lack of Transportation: No Lack of Food: Never True Current Housing: I Have Housing Concerned About Future Housing: No Difficulty Paying Gas/Electric Bills: No Difficulty Paying for Meds: No Currently Unemployed: No Education: Bachelor's Degree Difficulty w/ Childcare or Family Care: No Spiritual care concerns: No Meds Home Medications and Allergies Home Medications Medication Instructions Recorded Confirmed Type lisinopril 20 mg tablet 20
== END 2023-01-16 16:10 | disposition home or self-care (01) ==
LOC: ANHED 08:33 → ANH2MED 18:22 → ANH3MEDSUR 01-17 07:53
PROVIDERS: Nurse Practitioner Acute Care; Physician Assistant; Admitting Provider Internal Medicine; Emergency Provider Emergency Medicine; PCP Family Medicine; Visit Provider Family Medicine
DX: R55 Syncope and collapse (principal); I65.21 Occlusion and stenosis of right carotid artery; I10 Essential (primary) hypertension; K21.9 Gastro-esophageal reflux disease without esophagitis; F43.9 Reaction to severe stress, unspecified; Z79.890 Hormone replacement therapy; Z87.891 Personal history of nicotine dependence; F10.90 Alcohol use, unspecified, uncomplicated; Z79.899 Other long term (current) drug therapy
CPT/HCPCS: 36415; 70496; 70498; 70553; 71045; 80053; 80061; 81003; 82948; 84484; 85025; 85027; 85380; 85610; 85730; 93005; 95816; 96374; 96375; 99285; A9270; A9577; C8929; G0378; Q9957; Q9967

== ENCOUNTER 2023-07-15 11:47 | Emergency (ER) | payer BC, SELFPAY ==
--- NOTE | ~2023-07-15 | CT_ITS ---
Non-contrast Head CT History: Seizure COMPARISON: 01/14/2023 Technique: Axial non-contrast imaging of the brain was performed. Dose reduction technique was used on this scan by utilizing automated exposure control and iterative reconstruction technique. The dose -length product (DLP) was 681.00 mGy-cm. Findings: There is no evidence of intracranial hemorrhage, mass lesion, or acute infarct. Brain par enchyma appears normal. The ventricles and subarachnoid spaces are normal in size. The calvarium ap pears normal. The visualized paranasal sinuses and mastoid air cells are clear. Impression: No significant abnormality seen. Reviewed, dictated and finalized at location . Impression: No significant abnormality seen.
[2023-07-15 11:44] VITALS: BP 164/80; PULSE 104; RESP 19; TEMP 37; O2SAT 100
[2023-07-15 11:57] VITALS: O2SAT 99
[2023-07-15 12:04] VITALS: PULSE 97; O2SAT 100
--- NOTE | 2023-07-15 12:05 | ECG_ITS ---
[facility] [address] Test Date: 2023-07-15 Pat Name: Ambreen Hutchison Department: Room: Gender: F Ribbon Hand: : 1965 Requested By: Tima Castellano Order Number: [id number] Jose Cruz MD: Andrea Walsh M.D. Measurements Intervals [place] Rate: 87 P: 76 WV: 129 QRS: -1 QRSD: 84 T: 39 QT: 349 QTc: 421 Interpretive Statements SINUS RHYTHM LOW QRS VOLTAGE IN PRECORDIAL LEADS [QRS DEFLECTION < 1.0 mV IN CHEST LEADS] ABNORMAL ECG No previous ECG available for comparison Electronically Signed On 07-15-2023 14:56:26 CDT by Andrea Walsh M.D.
[2023-07-15 12:58] LABS: Basophils Absolute Auto 0.1 K/mm3 (0.0-0.1); Basophils Percent Auto 0.8 % (0.2-1.2); Eosinophils Absolute Auto 0.1 K/mm3 (0-0.3); Eosinophils Percent Auto 0.9 % (0-4.4); Hematocrit 42.8 % (37.0-47.0); Hemoglobin 14.5 g/dL (12.0-15.0); Immature Granulocyte Absolute 0.01 K/mm3 (0.00-0.031); Immature Granulocyte Percent A 0.1 % (0-0.5); Lymphocytes Absolute Auto 1.54 K/mm3 (0.9-3.2); Lymphocytes Percent Auto 19.6 % (18.3-44.2); Mean Corpuscular HGB Conc 33.9 g/dl (32-36); Mean Corpuscular Hemoglobin 30.9 pg (26-34); Mean Corpuscular Volume 91.1 fl (80-100); Mean Platelet Volume 10.2 fl (7.4-10.4); Monocytes Absolute Auto 0.5 K/mm3 (0.1-0.6); Monocytes Percent Auto 6.8 % (2.6-8.5); Neutrophils Absolute Auto 5.6 K/mm3 (1.3-6.7); Neutrophils Percent Auto 71.8 % (45.5-73.1); Platelet Count Result 276 k/mm3 (150-375); Red Cell Distribution Width 12.3 % (11.5-14.5); White Blood Count 7.8 K/mm3 (4.5-10.0)
[2023-07-15 13:09] LABS: INR 0.9
[2023-07-15 13:10] LABS: Alanine Aminotransferase 46 U/L (6-35); Albumin Level 4.4 g/dL (3.5-5.1); Alkaline Phosphatase 70 U/L (38-126); Anion Gap 6 mmol/L (4-12); Aspartate Amino Transferase 37 U/L (14-36); Bilirubin,Total 0.5 mg/dL (0.2-1.3); Blood Urea Nitrogen 13 mg/dL (7-17); Calcium 9.4 mg/dL (8.4-10.2); Carbon Dioxide 23 mmol/L (22-30); Chloride 108 mmol/L (98-107); Estimated CRCL calculation 68 ml/min; Estimated Glomerular Filt Rate > 60; Glucose 93 mg/dL (65-110); Partial Thromboplastin Time 32.8 Seconds (22.3-36.8); Potassium 4.2 mmol/L (3.4-5.0); Sodium 137 mmol/L (137-145)
[2023-07-15 14:22] VITALS: BP 134/66; PULSE 70; RESP 14; O2SAT 100
--- NOTE | 2023-07-15 14:53 | ED.SEIZURE ---
HPI - Seizure General Chief Complaint: Seizure Stated Complaint: seizure Time Seen by Provider: 07/15/23 12:09 History of Present Illness HPI Narrative: Pt states he was in the basement and said he heard something fall upstairs. He ran upstairs and found patient on floor having grand mal seizure. Pt says she was rigid and shaking and foaming at mouth. Pt has no known seizure history but thinks she may have had something like this in December and it was not witnessed. Pt says she feels fine now, Related Data Home Medications Medication Instructions Recorded Confirmed lisinopril 20 mg tablet 20 mg PO DAILY 06/14/22 06/10/23 norethindrone 0.4 mg-ethinyl 1 tablet PO HS 06/14/22 06/10/23 estradiol 35 mcg tablet multivit with minerals-iron 18 1 tablet PO HS 06/22/22 06/10/23 mg-folic ac 400 mcg-vit K 25 mcg tablet (Adults Multivitamin) omega 9-xbh-sod-fish oil 1,200 mg 1 cap PO HS 06/22/22 06/10/23 (144 mg-216 mg) capsule (Fish Oil) Allergies Allergy/AdvReac Type Severity Reaction Status Date / Time Sulfa (Sulfonamide Allergy Intermediate Rash Verified 07/15/23 11:56 Antibiotics) Review of Systems Review of Systems: All systems reviewed & are unremarkable except as noted in HPI and below PMFSH Past Medical History Medical History GERD (gastroesophageal reflux disease) Hypertension Surgical History Surgical History History of esophagogastroduodenoscopy History of wisdom tooth extraction Family History Family History Father Family history of heart disease in male family member before age 55 Family history of elevated blood lipids Family history of cardiovascular disease Other Family history of malignant neoplasm Social History Social History Social History: Surrogate medical decision maker: Severino Croftlincoln, spouse. Code status: Full code. Smoking packs per day: 0.5 Smoking cigarettes per day: 10.0 Years smoked: 4 Smoking pack-years: 2.00 Smoking status: Former smoker Tobacco type: cigarettes Smoking end date: 02/11/89 Alcohol intake: current Drinks per week: 1 Substance use: never Substance use type: does not use Do You Feel Safe in your Home?: Yes Lack of Transportation: No Lack of Food: Never True Current Housing: I Have Housing Concerned About Future Housing: No Difficulty Paying Gas/Electric Bills: No Difficulty Paying for Meds: No Currently Unemployed: No Education: Bachelor's Degree Difficulty w/ Childcare or Family Care: No Spiritual care concerns: No Exam Eyes: Conjunctivae: conjunctivae normal EOM: EOMs intact bilaterally Neck: Neck: normal visual inspection Resp: Effort & Inspection: normal respiratory effort Auscultation: clear to auscultation bilaterally Cardio: Rate: regular rate GI: Auscultation: normal bowel sounds Skin: General skin exam: normal color Wounds: no wounds Neuro: General: patient oriented x3, moves all extremities and no focal motor deficits Speech: normal speech Extrem: General: normal to inspection and no clubbing, cyanosis or edema Psych: Appearance: grossly normal Mental Status: mental status grossly normal Affect: normal affect Attitude: cooperative Course Vital Signs Vital signs: Vital Signs Temperature 98.6 F 07/15/23 11:44 Pulse Rate 104 H 07/15/23 11:44 Respiratory Rate 19 07/15/23 11:44 Blood Pressure 164/80 H 07/15/23 11:44 Pulse Oximetry 100 07/15/23 11:44 Oxygen Delivery Room Air 07/15/23 11:44 Temperature 98.6 F 07/15/23 15:22 Pulse Rate 70 07/15/23 15:22 Respiratory Rate 13 07/15/23 15:22 Blood Pressure 128/54 L 07/15/23 15:22 Pulse Oximetry 100 07/15/23 15:22 Oxygen Delivery R
[2023-07-15 15:22] VITALS: BP 128/54; PULSE 70; RESP 13; TEMP 37; O2SAT 100
== END 2023-07-15 15:24 | disposition home or self-care (01) ==
PROVIDERS: Emergency Provider Emergency Medicine; PCP Emergency Medicine
DX: R56.9 Unspecified convulsions (principal); K21.9 Gastro-esophageal reflux disease without esophagitis; I10 Essential (primary) hypertension; Z87.891 Personal history of nicotine dependence
CPT/HCPCS: 36415; 70450; 80053; 85025; 85610; 85730; 93005; 99284

== ENCOUNTER 2024-01-23 09:42 | Emergency (ER) | payer BC, SELFPAY ==
--- NOTE | ~2024-01-23 | CT_ITS ---
EXAMINATION: CT thoracic spine wo con DATE: 01/23/2024 10:39 INDICATION: Fall with seizure activity TECHNIQUE: Computed tomography (CT) of the thoracic spine was performed without intravenous contrast. Automated exposure control and iterative reconstruction technique were employed. The dose-length pro duct was 759.69 mGy-cm. COMPARISON: None FINDINGS: 15 degrees thoracic levoscoliosis. Sagittal alignment is normal. Vertebral body heights are normal. N o acute fracture. Moderate disc height loss at T3-T4 through T6-T7 and at T9-T10 with mild disc heigh t loss at throughout the remainder of the thoracic spine. Minimal dependent atelectasis in both lungs . Visualized portion of the heart and mediastinum are unremarkable. Bilateral renal cysts , the large r partially visualized on the left measuring at least 5 cm in maximal diameter. IMPRESSION: 1. 15 degrees thoracic levoscoliosis with moderate spondylosis. No acute osseous abnormality. Reviewed, dictated and finalized at location A. 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 15 degrees thoracic levoscoliosis with moderate spondylosis. No acute osseou s abnormality.
--- NOTE | ~2024-01-23 | CT_ITS ---
EXAMINATION: 1. CT facial & cervical spine wo DATE: 01/23/2024 10:38 INDICATION: Seizure with head injury TECHNIQUE: 1. Computed tomography (CT) of the maxillofacial region and of the cervical spine were performed with out intravenous contrast. Sagittal and coronal reconstructions of both regions were obtained. Automat ed exposure control and iterative reconstruction technique were employed. The dose-length product was 401.11 mGy-cm. COMPARISON: None. FINDINGS: Maxillofacial CT: Temporomandibular joints are normal alignment with mild osteoarthritis on the right and moderate on t he left. No maxillofacial fractures. Specifically the nasal bones, zygomatic arches, mandible and wal ls of the orbits and paranasal sinuses are all intact. Nasal septum is midline with no fracture. Orbi ts are normal. Paranasal sinuses and healthy mastoid air cells and middle ear cavities are clear. Cervical spine CT: Straightening of the normal lordosis in the lower cervical spine. Vertebral body heights are normal. No fracture. Moderate osteoarthritis at the atlantoaxial articulation. 3 moderate disc height loss at C6-C7. Mild disc height loss at C2-C3, C5-C6 and C7-T1. Disc bulge at C4-C5 and posterior disc ossif ied complexes at C5-C6 and C6-C7 age resulting in mild central canal stenosis. Severe uncovertebral o steoarthritis on the left at C5-C6 resulting in moderate neural foraminal stenosis. There is moderate uncovertebral osteoarthritis contributing to mild neural foraminal stenosis on the right at C5-C6 an d on the left at C6-C7. There is osseous fusion across the right C2-C3 facet joint. There is mild to moderate facet osteoarthritis throughout the remainder of the cervical spine. Likely benign 8 mm hypo dense nodules in the right thyroid lobe. Atherosclerotic calcifications at the bilateral carotid bulb s. Cervical soft tissues are otherwise unremarkable. Visualized apices of the lungs are clear. IMPRESSION: 1. Moderate cervical spondylosis. No acute osseous abnormality. Reviewed, dictated and finalized at location A. 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
--- NOTE | ~2024-01-23 | CT_ITS ---
Non-contrast Head CT History: Seizure COMPARISON: 07/15/2023 Technique: Axial non-contrast imaging of the brain was performed. Dose reduction technique was used on this scan by utilizing automated exposure control and iterative reconstruction technique. The dose -length product (DLP) was 605.33 mGy-cm. Findings: There is no evidence of intracranial hemorrhage, mass lesion, or acute infarct. Brain par enchyma appears normal. The ventricles and subarachnoid spaces are normal in size. The calvarium ap pears normal. The visualized paranasal sinuses and mastoid air cells are clear. Impression: No significant abnormality seen. Reviewed, dictated and finalized at location . ET AGENT Impression: No significant abnormality seen.
--- OUTSIDE RECORDS SUMMARY | 2024-01-23 09:44 | XMS_ITS | Data Portability ---
Author Organization [facility] Conformity, Main Office Address [address] [place] [address] Assessment No assessment recorded. Plan of Treatment Reminders Order Date Submit Date Provider Last Modified By Organization Details Last Modified Time Details Appointments None recorded. Lab lipid panel, serum [address] [facility] (Lab), [address] [place], [address], 3 06:07:02 CMP, serum or plasma [address] [facility] (Lab), [address] [place], [address], 3 06:07:03 CK (creatine kinase), total, serum [address] [facility] (Lab), [address] [place], [address], 3 06:07:05 CBC w/ auto diff [address] [facility] (Lab), [address] [place], [address], 3 06:07:06 TSH, serum or plasma [address] [facility] (Lab), [address] [place], [address], 3 06:07:07 Referral gastroenter ologist referral 2022 023 GABRIEL Palacio MD, [address] [facility] [address], [place], [address], 3 12:56:47 vascular surgeon referral - 57 y/o with TIA Jan 14 , in [facility]. Please eval and treat . Thank you 2022 023 [email or web address] Blaine Tanmay, [facility]0 [facility] [address], [place], [address], 3 10:19:29 Procedures None recorded. Surgeries None recorded. Imaging None recorded. Medication Orders amoxicillin 500 mg capsule 2022 023 [email or web address] [facility] #[id number], [address], [place], [place], [id number], 4 12:31:07 clopidogrel 75 mg tablet 2022 023 [place] [employer] [facility]35764, [address], [place], [place], [id number], 3 14:40:56 atorvastati n 20 mg tablet 2022 023 [facility] [employer] [facility] #22601, [address], [place], [place], [id number], 3 14:42:31 amoxicillin 500 mg capsule 2023 024 [facility] #18386, [address], [place], [place], [id number], 4 22:03:35 Patient TargetsNo targets recorded. Patient InstructionsNo instructions recorded. Reason for Referral Returned Case Inspector Referral for Hematochezia Referring Physician: Suad Berg, Family Medicine, Encounter Date: 05/31/2022 Vascular Surgeon Referral fo r Disorder of carotid artery 57 y/o with TIA Jan 14 , in [facility]. Please eval and treat . Thank you Referring Physician: John Sanderson, Family Medicine, Encounter Date: 01/28/2023 Results Created Date Observation Date Name Description Value Unit Range Abnormal Flag Note LastModifiedBy Organization Detail LastModifiedTime 12/21/19 21 12/21/2020 TSH W/REF SILVIA TO FT4 TSH w/reflex to FT4 2.32 mIU/L 0.40-4 .50 normal Not Available [employer] [address] [address] [place], [address], 12/21/2020 05:06:11 12/21/19 21 12/21/2020 COMPR EHENS OSEAS METAB OLIC PANEL glucose 89 mg/dL 65-99 normal Fasti ng refer ence inter bob Not Available [address] [address] [place], [address], 12/21/2020 05:06:10 12/21/19 21 12/21/2020 COMPR EHENS OSEAS METAB OLIC PANEL urea nitrogen (BUN) 14 mg/dL 7-25 normal Not Available [address] [address] [place], [address], 12/21/2020 05:06:10 12/21/19 21 12/21/2020 COMPR EHENS OSEAS METAB OLIC PANEL creatinine 0.79 mg/dL 0.50-1 .05 normal For patie nts >49 years of age, the refer ence limit for Creat inine is appro ximat matt 13% highe r for peopl e ident ified as Afric an-Am rosalba n. Not Available [employer] [address] [address] [place], [address], 12/21/2020 05:06:10 12/21/19 21 12/21/2020 COMPR EHENS OSEAS METAB OLIC PANEL eGFR non-afr. bahamian 84 mL/mi n/1.7 3m2 > or = 60 normal Not Available [employer] [address] [address] [place], [address], 12/21/2020 05:06:10 12/21/19 21 12/21/2020 COMPR EHENS OSEAS METAB OLIC PANEL eGFR 97 mL/mi n/1.7 3m2 > or = 60 normal Not Available [address], [address], 12/21/2020 05:06:10 12/21/19 21 12/21/2020 COMPR EHENS OSEAS METAB OLIC PANEL BUN/creatini ne ratio not applic able (calc ) 6-22 Not Available [address], [address], 12/21/2020 05:06:10 12/21/19 21 12/21/2020 COMPR EHENS OSEAS METAB OLIC PANEL sodium 138 mmol/ L 135-14 6 normal Not Available [address], [address], 12/21/2020 05:06:10 12/21/19 21 12/21/2020 COMPR EHENS OSEAS METAB OLIC PANEL potassium 4.5 mmol/ L 3.5-5. 3 normal Not Available [address], [address], 12/21/2020 05:06:10 12/21/19 21 12/21/2020 COMPR EHENS OSEAS METAB OLIC PANEL chloride 105 mmol/ L 98-110 normal Not Available [address], [address], 12/21/2020 05:06:10 12/21/19 21 12/21/2020 COMPR EHENS OSEAS METAB OLIC PANEL carbon dioxide 27 mmol/ L 20-32 normal Not Available [address], [address], 12/21/2020 05:06:10 12/21/19 21 12/21/2020 COMPR EHENS OSEAS METAB OLIC PANEL calcium 9.5 mg/dL 8.6-10 .4 normal Not Available [address], [place], [address], 12/21/2020 05:06:10 12/21/19 21 12/21/2020 COMPR EHENS OSEAS METAB OLIC PANEL protein, total 6.6 g/dL 6.1-8. 1 normal Not Available [address], [address], 12/21/2020 05:06:10 12/21/19 21 12/21/2020 COMPR EHENS OSEAS METAB OLIC PANEL albumin 4.2 g/dL 3.6-5. 1 normal Not Available [address], [address], 12/21/2020 05:06:10 12/21/19 21 12/21/2020 COMPR EHENS OSEAS METAB OLIC PANEL globulin 2.4 g/dL_ (calc ) 1.9-3. 7 normal Not Available [address], [address], 12/21/2020 05:06:10 12/21/19 21 12/21/2020 COMPR EHENS OSEAS METAB OLIC PANEL albumin/glob ulin ratio 1.8 (calc ) 1.0-2. 5 normal Not Available [address], [address], 12/21/2020 05:06:10 12/21/19 21 12/21/2020 COMPR EHENS OSEAS METAB OLIC PANEL bilirubin, total 0.4 mg/dL 0.2-1. 2 normal Not Available [address], [address], 12/21/2020 05:06:10 12/21/19 21 12/21/2020 COMPR EHENS OSEAS METAB OLIC PANEL alkaline phosphatase 66 U/L 37-153 normal Not Available [address] [address] [place], [address], 12/21/2020 05:06:10 12/21/19 21 12/21/2020 COMPR EHENS OSEAS METAB OLIC PANEL AST 17 U/L 10-35 normal Not Available [address], [address], 12/21/2020 05:06:10 12/21/19 21 12/21/2020 COMPR EHENS OSEAS METAB OLIC PANEL ALT 22 U/L 6-29 normal Not Available [address], [address], 12/21/2020 05:06:10 12/21/19 21 12/21/2020 LIPID PANEL , STAND CAROL cholesterol, total 195 mg/dL <200 normal Not Available [address], [address], 12/21/2020 05:06:09 12/21/19 21 12/21/2020 LIPID PANEL , STAND CAROL HDL cholesterol 70 mg/dL > or = 50 normal Not Available [address], [address], 12/21/2020 05:06:09 12/21/1912/21/2020 LIPID PANEL , STAND CAROL triglyceride s 97 mg/dL <150 normal Not Available [address], [address], 12/21/2020 05:06:09 12/21/1912/21/2020 LIPID PANEL , STAND CAROL LDL-choleste rol 106 mg/dL _(brenda c) high Refer ence range : <100 Teo able range <100 mg/dL for prima ry preve ntion ; <70 mg/dL for patie nts with CHD or diabe tic patie nts with > or = 2 CHD risk facto rs. LDL-C is now calcu lated using the Katey n-Hop kins calcu beth n, which is a valid ated novel metho d mahnazi aurelio payne r accur acy than the Fried nancy equat ion in the estim ation of LDL-C . Katey jacobson SS et al. AV. 2013; 310(5 5): 2061- 2068 (http ://ed ucati on.Bertha linDisruptor Beam. com/f aq/FA Q164) Not Available [address] [address] [place], [address], 12/21/2020 05:06:09 12/21/19 21 12/21/2020 LIPID PANEL , STAND CAROL chol/HDLC ratio 2.8 (calc ) <5.0 normal Not Available [address] [place], [address], 12/21/2020 05:06:09 12/21/1912/21/2020 LIPID PANEL , STAND CAROL non HDL cholesterol 125 mg/dL _(brenda c) <130 normal For patie nts with diabe pj plus 1 major ASCVD risk facto r, treat ing to a non-H DL-C goal of <100 mg/dL (LDL- C of <70 mg/dL ) is consi gabyd a alfredo bradnono n. Not Available [address], [address], 12/21/2020 05:06:09 02/01/20 23 02/01/2023 LIPID PANEL , STAND CAROL cholesterol, total 119 mg/dL <200 normal Not Available [address] [address] [place], [address], 02/01/2023 06:07:02 02/01/20 23 02/01/2023 LIPID PANEL , STAND CAROL HDL cholesterol 58 mg/dL > or = 50 normal Not Available [address], [address], 02/01/2023 06:07:02 02/01/20 23 02/01/2023 LIPID PANEL , STAND CAROL triglyceride s 92 mg/dL <150 normal Not Available [address] [place], [address], 02/01/2023 06:07:02 02/01/20 23 02/01/2023 LIPID PANEL , STAND CAROL LDL-choleste rol 43 mg/dL _(brenda c) normal Refer ence range : <100 Teo able range <100 mg/dL for prima ry preve ntion ; <70 mg/dL for patie nts with CHD or diabe tic patie nts with > or = 2 CHD risk facto rs. LDL-C is now calcu lated using the Katey n-Hop kins calcu beth n, which is a valid ated novel metho d provi ding elmer r accur acy than the Fried nancy equat ion in the estim ation of LDL-C . Katey jacobson SS et al. AV. 2013; 310(1 9): 2061- 2068 (http ://ed ucati on.Tale Me Stories. com/f aq/FA Q164) Not Available [employer] [facility] [address] [address] [place], [address], 02/01/2023 06:07:02 02/01/20 23 02/01/2023 LIPID PANEL , STAND CAROL chol/HDLC ratio 2.1 (calc ) <5.0 normal Not Available [employer] [facility] [address] [address] [place], [address], 02/01/2023 06:07:02 02/01/20 23 02/01/2023 LIPID PANEL , STAND CAROL non HDL cholesterol 61 mg/dL _(brenda c) <130 normal For patie nts with diabe pj plus 1 major ASCVD risk facto r, treat ing to a non-H DL-C goal of <100 mg/dL (LDL- C of <70 mg/dL ) is richard brandono n. Not Available [employer] [facility] [address] [place], [address], 02/01/2023 06:07:02 02/01/20 23 02/01/2023 COMPR EHENS OSEAS METAB OLIC PANEL glucose 86 mg/dL 65-99 normal Fasti ng refer ence inter bob Not Available [address], [address], 02/01/2023 06:07:03 02/01/20 23 02/01/2023 COMPR EHENS OSEAS METAB OLIC PANEL urea nitrogen (BUN) 8 mg/dL 7-25 normal Not Available [address], [address], 02/01/2023 06:07:03 02/01/20 23 02/01/2023 COMPR EHENS OSEAS METAB OLIC PANEL creatinine 0.75 mg/dL 0.50-1 .03 normal Not Available [address], [address], 02/01/2023 06:07:03 02/01/20 23 02/01/2023 COMPR EHENS OSEAS METAB OLIC PANEL eGFR 92 mL/mi n/1.7 3m2 > or = 60 normal Not Available [address], [address], 02/01/2023 06:07:03 02/01/20 23 02/01/2023 COMPR EHENS OSEAS METAB OLIC PANEL BUN/creatini ne ratio SEE NOTE: (calc ) 6-22 Not Repor gregoria: BUN and Creat inine are withi n refer ence range . Not Available [address], [address], 02/01/2023 06:07:03 02/01/20 23 02/01/2023 COMPR EHENS OSEAS METAB OLIC PANEL sodium 142 mmol/ L 135-14 6 normal Not Available [address], [address], 02/01/2023 06:07:03 02/01/20 23 02/01/2023 COMPR EHENS OSEAS METAB OLIC PANEL potassium 4.3 mmol/ L 3.5-5. 3 normal Not Available [address] [address] [place], [address], 02/01/2023 06:07:03 02/01/20 23 02/01/2023 COMPR EHENS OSEAS METAB OLIC PANEL chloride 108 mmol/ L 98-110 normal Not Available [address] [address] [place], [address], 02/01/2023 06:07:03 02/01/20 23 02/01/2023 COMPR EHENS OSEAS METAB OLIC PANEL carbon dioxide 29 mmol/ L 20-32 normal Not Available [address], [address], 02/01/2023 06:07:03 02/01/20 23 02/01/2023 COMPR EHENS OSEAS METAB OLIC PANEL calcium 9.3 mg/dL 8.6-10 .4 normal Not Available [address], [address], 02/01/2023 06:07:03 02/01/20 23 02/01/2023 COMPR EHENS OSEAS METAB OLIC PANEL protein, total 6.7 g/dL 6.1-8. 1 normal Not Available [address], [address], 02/01/2023 06:07:03 02/01/20 23 02/01/2023 COMPR EHENS OSEAS METAB OLIC PANEL albumin 4.3 g/dL 3.6-5. 1 normal Not Available [address] [address] [place], [address], 02/01/2023 06:07:03 02/01/20 23 02/01/2023 COMPR EHENS OSEAS METAB OLIC PANEL globulin 2.4 g/dL_ (calc ) 1.9-3. 7 normal Not Available [address] [place], [address], 02/01/2023 06:07:03 02/01/20 23 02/01/2023 COMPR EHENS OSEAS METAB OLIC PANEL albumin/glob ulin ratio 1.8 (calc ) 1.0-2. 5 normal Not Available [address], [address], 02/01/2023 06:07:03 02/01/20 23 02/01/2023 COMPR EHENS OSEAS METAB OLIC PANEL bilirubin, total 0.4 mg/dL 0.2-1. 2 normal Not Available [address], [address], 02/01/2023 06:07:03 02/01/20 23 02/01/2023 COMPR EHENS OSEAS METAB OLIC PANEL alkaline phosphatase 79 U/L 37-153 normal Not Available [address], [address], 02/01/2023 06:07:03 02/01/20 23 02/01/2023 COMPR EHENS OSEAS METAB OLIC PANEL AST 20 U/L 10-35 normal Not Available [address], [address], 02/01/2023 06:07:03 02/01/20 23 02/01/2023 COMPR EHENS OSEAS METAB OLIC PANEL ALT 23 U/L 6-29 normal Not Available [address], [address], 02/01/2023 06:07:03 02/01/20 23 02/01/2023 CREAT INE KINAS E, TOTAL creatine kinase, total 51 U/L 29-143 normal Not Available [address], [address], 02/01/2023 06:07:05 02/01/20 23 02/01/2023 CBC (INCL UDES DIFF/ PLT) white blood cell count 6.3 thous and/u L 3.8-10 .8 normal Not Available [address], [address], 02/01/2023 06:07:06 02/01/20 23 02/01/2023 CBC (INCL UDES DIFF/ PLT) red blood cell count 4.69 nader on/uL 3.80-5 .10 normal Not Available [address], [address], 02/01/2023 06:07:06 02/01/20 23 02/01/2023 CBC (INCL UDES DIFF/ PLT) hemoglobin 14.2 g/dL 11.7-1 5.5 normal Not Available [address], [address], 02/01/2023 06:07:06 02/01/20 23 02/01/2023 CBC (INCL UDES DIFF/ PLT) hematocrit 41.5 % 35.0-4 5.0 normal Not Available [address], [address], 02/01/2023 06:07:06 02/01/20 23 02/01/2023 CBC (INCL UDES DIFF/ PLT) MCV 88.5 fL 80.0-1 00.0 normal Not Available [address], [address], 02/01/2023 06:07:06 02/01/20 23 02/01/2023 CBC (INCL UDES DIFF/ PLT) MCH 30.3 pg 27.0-3 3.0 normal Not Available [address], [address], 02/01/2023 06:07:06 02/01/20 23 02/01/2023 CBC (INCL UDES DIFF/ PLT) MCHC 34.2 g/dL 32.0-3 6.0 normal Not Available [address], [address], 02/01/2023 06:07:06 02/01/20 23 02/01/2023 CBC (INCL UDES DIFF/ PLT) RDW 12.5 % 11.0-1 5.0 normal Not Available [address], [address], 02/01/2023 06:07:06 02/01/2002/01/2023 CBC (INCL UDES DIFF/ PLT) platelet count 299 thous and/u L 140-40 0 normal Not Available [address], [address], 02/01/2023 06:07:06 02/01/2002/01/2023 CBC (INCL UDES DIFF/ PLT) MPV 10.7 fL 7.5-12 .5 normal Not Available [address], [address], 02/01/2023 06:07:06 02/01/20 23 02/01/2023 CBC (INCL UDES DIFF/ PLT) absolute neutrophils 3723 cells /uL 1500-7 800 normal Not Available [address], [address], 02/01/2023 06:07:06 02/01/20 23 02/01/2023 CBC (INCL UDES DIFF/ PLT) absolute lymphocytes 1871 cells /uL 850-39 00 normal Not Available [address], [address], 02/01/2023 06:07:06 02/01/20 23 02/01/2023 CBC (INCL UDES DIFF/ PLT) absolute monocytes 485 cells /uL 200-95 0 normal Not Available [address], [address], 02/01/2023 06:07:06 02/01/20 23 02/01/2023 CBC (INCL UDES DIFF/ PLT) absolute eosinophils 170 cells /uL 15-500 normal Not Available [address], [address], 02/01/2023 06:07:06 02/01/20 23 02/01/2023 CBC (INCL UDES DIFF/ PLT) absolute basophils 50 cells /uL 0-200 normal Not Available [address], [address], 02/01/2023 06:07:06 02/01/20 23 02/01/2023 CBC (INCL UDES DIFF/ PLT) neutrophils 59.1 % normal Not Available [address], [address], 02/01/2023 06:07:06 02/01/20 23 02/01/2023 CBC (INCL UDES DIFF/ PLT) lymphocytes 29.7 % normal Not Available [address], [address], 02/01/2023 06:07:06 02/01/20 23 02/01/2023 CBC (INCL UDES DIFF/ PLT) monocytes 7.7 % normal Not Available [address], [address], 02/01/2023 06:07:06 02/01/20 23 02/01/2023 CBC (INCL UDES DIFF/ PLT) eosinophils 2.7 % normal Not Available [address], [address], 02/01/2023 06:07:06 02/01/20 23 02/01/2023 CBC (INCL UDES DIFF/ PLT) basophils 0.8 % normal Not Available [address], [address], 02/01/2023 06:07:06 02/01/20 23 02/01/2023 TSH W/REF SILVIA TO FT4 TSH w/reflex to FT4 2.24 mIU/L 0.40-4 .50 normal Not Available [facility] [address] [address], [place], [address], 02/01/2023 06:07:07 03/23/19 23 03/23/2022 MAMMO , scree karthikeyan, digit al, bilat eral No observ ation record ed. [id number] [address], [place], [address], 04/11/2022 19:46:15 01/15/20 23 01/14/2023 CT, brain , w/ contr ast No observ ation record ed. [address] [address], [place], [address], 01/15/2023 08:31:59 01/15/20 23 01/14/2023 XR, chest , 2 view No observ ation record ed. [address] [address], [place], [address], 01/15/2023 08:32:29 01/16/20 23 01/15/2023 MRI, brain + brain stem, w/ contr ast No observ ation record ed. [address] [address], [place], [address], 01/15/2023 10:04:16 01/16/20 23 01/15/2023 US, echo ardio gram, trans thora cic, bubbl e study No observ ation record ed. [address] [address], [place], [address], 01/16/2023 09:29:39 01/17/20 23 01/14/2023 peewee nuous EEG monit bettina berg al compo nent; 12-26 hrs, with VEEG (PROC ) No observ ation record ed. [address] [address], [place], [address], 01/16/2023 11:58:29 03/28/19 24 03/28/2023 MAMMO , scree karthikeyan, digit al, bilat eral No observ ation record ed. [email or web address] [facility] [address] [facility], [address], 03/28/2023 11:46:06 Result Notes None recorded. Problems Name Problem SNOMED Code Status Onset Date Resolution Date Notes Provider Name and Address Organization Details Recorded Time Mitral valve prolapse 766955525 Active 2017 Not Available [facility] 3 19:45:27 Hematochezia 049366340 Active 2022 Suad Berg MD [address], [address], [place], [address] , [facility] 3 17:05:17 Disorder of carotid artery 886902025 Active 2022 HELEN Plascencia [address], [address], [place], [address] , [facility] 3 14:32:52 Acute right otitis media 688243556 Active 2022 HELEN Plascencia [address], [address], [place], [address] , [facility] 3 14:37:46 Transient cerebral ischemia 682873171 Active 2022 HELEN Plascencia [address], [place], [address] , [facility] 3 14:39:57 Hyperlipidemi a 29831962 Active 2022 HELEN Plascencia [address], [place], [address] , [facility] 3 14:41:16 Problem Notes None recorded. Procedures Surgical History Date Name Laterality Status Provider Name and Address Organization Details Recorded Time 03/28/19 screening mammography completed Porter Mayberry RN [facility] 03/28/2023 11:45:43 procedure on eyelid completed Not Available [facility] 04/11/2022 19:44:59 Imaging Results Imaging Date Name Status LastModified by Organization Details LastModified Time 03/23/2022 MAMMO, screening, digital, bilateral completed [id number] [facility] [address], [place], [address], 04/11/2022 19:46:15 01/14/2023 CT, brain, w/ contrast completed [address], [address], 01/15/2023 08:31:59 01/14/2023 XR, chest, 2 view completed [address], [address], 01/15/2023 08:32:29 01/15/2023 MRI, brain + brain stem, w/ contrast completed [address], [address], 01/15/2023 10:04:16 01/15/2023 US, echocardiogram, transthoracic, bubble study completed [address], [address], 01/16/2023 09:29:39 01/14/2023 continuous EEG monitoring, professional component; 12-26 hrs, with VEEG (PROC) completed [address], [address], 01/16/2023 11:58:29 03/28/2023 MAMMO, screening, digital, bilateral completed [email or web address] [facility] [address] [place], [address], 03/28/2023 11:46:06 Procedure Notes None recorded. Medical Equipment None Reported. Allergies Allergen ID Allergen Name Allergen Category Reaction Reaction Severity Criticality Documentation Date Start Date Code Code System Note Provider Name and Address Organization Details Recorded Time 77705 Substance with sulfonami de structure and antibacte rial mechanism of action (substanc e) medicatio n rash Not available Not available 04/11/2022 77243 8003 SNOMED Not Available [facility] 3 19:46:13 Medications Name Sig Start Date Stop Date Status Note LastModified by Organization Details LastModified Time amoxicillin 500 mg capsule TAKE 2 CAPSULES BY MOUTH TWICE DAILY FOR 10 DAYS active Not Available Not Available No t Available atorvastati n 20 mg tablet TAKE 1 TABLET BY MOUTH EVERY DAY IN THE MORNING active Not Available Not Available No t Available lisinopril 20 mg tablet active Not Available Not Available Not Available clopidogrel 75 mg tablet TAKE 1 TABLET BY MOUTH EVERY DAY active Not Available Not Available No t Available aspirin 81 mg tablet,lexus yed release TAKE 1 TABLET BY MOUTH EVERY DAY active Not Available Not Available No t Available erythromyci n 5 mg/gram (0.5 %) eye ointment 08/11 completed Not Available Not Available Not Available omeprazole 20 mg capsule,del ayed release TAKE 1 CAPSULE BY MOUTH EVERY MORNING active Not Available Not Available No t Available lisinopril 10 mg-hydrochl orothiazide 12.5 mg tablet TAKE 1 TABLET BY MOUTH EVERY DAY 01/26 completed Not Available Not Available Not Available duloxetine 30 mg capsule,del ayed release TAKE 1 CAPSULE BY MOUTH EVERY MORNING active Not Available Not Available No t Available estradiol-n orethindron e acet 0.5 mg-0.1 mg tablet TAKE 1 TABLET BY MOUTH EVERY DAY active Not Available Not Available No t Available GaviLyte-N 420 gram oral solution USE DIRECTED 03/17 completed Not Available Not Available Not Available Afluria Quad 0589-7239 (PF) 60 mcg (15 mcg x 4)/0.5 mL IM syringe active Not Available Not Available N ot Available Vitals Date Recorded Body mass index (BMI) Body height Oxygen saturation Oxygen saturation in Arterial blood by Pulse oximetry Heart rate Body temperature Body weight Systolic blood pressure Diastolic blood pressure Provider Name and Address Organization Details Last Updated DateTime 1 30.6 kg/m2 162.56 cm 98 % 98 % 67 /min 97.4 [degF] 13511.4 4 g 160 mm[Hg] 90 mm[Hg] Not Available [facility] 3 19:45:04 Date Recorded Body mass index (BMI) Body height Oxygen saturation Oxygen saturation in Arterial blood by Pulse oximetry Heart rate Body temperature Body weight Systolic blood pressure Diastolic blood pressure Provider Name and Address Organization Details Last Updated DateTime 2 31.1 kg/m2 162.56 cm 97 % 97 % 70 /min 97.8 [degF] 19215.2 2 g 140 mm[Hg] 76 mm[Hg] Not Available [facility] 3 19:45:04 Date Recorded Body height Body mass index (BMI) Body weight Body temperature Heart rate Oxygen saturation Oxygen saturation in Arterial blood by Pulse oximetry Systolic blood pressure Diastolic blood pressure Provider Name and Address Organization Details Last Updated DateTime 3 162.56 cm 30 kg/m2 52772.6 6 g 97.8 [degF] 65 /min 98 % 98 % 122 mm[Hg] 80 mm[Hg] SANDRA Armstrong [facility] 3 16:56:23 Date Recorded Body height Body mass index (BMI) Body weight Body temperature Heart rate Oxygen saturation Oxygen saturation in Arterial blood by Pulse oximetry Systolic blood pressure Diastolic blood pressure Provider Name and Address Organization Details Last Updated DateTime 3 162.56 cm 30.7 kg/m2 83158.0 3 g 97 [degF] 89 /min 99 % 99 % 152 mm[Hg] 76 mm[Hg] Paulina Herron MA [facility] 3 14:25:18 Date Recorded Body height Body mass index (BMI) Body weight Body temperature Heart rate Oxygen saturation Oxygen saturation in Arterial blood by Pulse oximetry Systolic blood pressure Diastolic blood pressure Provider Name and Address Organization Details Last Updated DateTime 4 162.56 cm 30.6 kg/m2 44364.4 4 g 97.1 [degF] 71 /min 100 % 100 % 128 mm[Hg] 76 mm[Hg] Anjali espino CMA [facility] 4 12:30:56 Social History Question Answer Notes LastModified by Organizat ion Details LastModified Time Tobacco Smoking Status Former Smoker Not Available [facility] 04/11/2022 19:44:51 What Is Your Level Of Alcohol Consumption? Occasional [id number] Information not available 04/11/2022 In The 14 Days Before Symptom Onset, Have You Had Close Contact With A Laboratory-confir med COVID-19 While That Case Was Ill? No [id number] Information not available 04/11/2022 In The 14 Days Before Symptom Onset, Have You Had Close Contact With A Person Who Is Under Investigation For COVID-19 While That Person Was Ill? No [id number] Information not available 04/11/2022 When Did You Quit Smoking? 15+yearssincel shahzad 1994 [id number] Information not available 02/26/2023 How Much Tobacco Do You Smoke? 0.5 PPD [id number] Information not available 04/11/2022 How Many Years Have You Smoked Tobacco? 8 [id number] Information not available 04/11/2022 Sex: Unknown Functional Status None recorded. Mental Status None recorded. Family History Relationship Description Onset Age of this Age Resolved Age Notes LastModified by Organization Details LastModified Time Maternal Grandmother Family history of malignant neoplasm [id number] Not available 04/11/2022 19:44:59 Maternal Grandmother Alzheimer's disease [id number] Not available 04/11/2022 19:44:59 Maternal Aunt Family history of malignant neoplasm [id number] Not available 04/11/2022 19:44:59 Maternal Aunt Family history of malignant neoplasm [id number] Not available 04/11/2022 19:44:59 Mother Alzheimer's disease [id number] Not available 04/11/2022 19:44:59 Paternal Grandfather Alzheimer's disease [id number] Not available 04/11/2022 19:44:59 Medical History No medical history recorded. Gynecological HistoryNo gynecological history recorded. Obstetrics History GPAL:G 0 P 0 0 0 0 Past Encounters Encounter ID Performer Location Encounter Start Date Encounter Closed Date Diagnosis/Indication Diagnosis SNOMED-CT Code Diagnosis ICD10 Code [id number] [facility] [place] [address] 08/11/2020 00:00:00 08/11/2020 19:27:24 [id number] [facility] [place] [address] 12/15/2020 00:00:00 12/15/2020 19:45:55 [id number] [facility] [place] [address] [facility] [place] [address] 01/26/2022 00:00:00 01/27/2022 10:31:14 [id number] Suad Berg MD [facility] [place] [address] [facility] [place] [address] 05/31/2022 16:49:17 05/31/2022 17:09:20 Hematochezia [id number] K92.1 [id number] HELEN Plascencia [facility] [place] [address] [facility] [place] [address] 01/28/2023 14:18:43 01/28/2023 14:52:10 Disorder of carotid artery 237686708 I77.9 Acute righ t otitis media 924171840 H66.91 Transient cerebral ischemia 539527336 G45.9 Hyperlipidemia 21017547 E78.5 [id number] HELEN Plascencia [facility] [place] [address] [facility] [place] [address] 02/26/2023 12:25:25 02/26/2023 12:52:53 Acute right otitis media 001346262 H66.91 Disorder o f carotid artery 171273212 I77.9 Hyperlipidemia 99043182 E78.5 Mitral valve prolapse 40 9565070 I34.1 Health Concerns Section Related Observation LastModified by Organization Detai ls LastModified Time None Recorded Concern Status LastModified by Organization Details LastModified Time None Recorded Advance Directives Directive None Recorded Payers Encounter Date Sequence Insurance Name Policy Number Policy Fernandez Covered Member ID Fernandez Member ID Guarantor Name 05/31/2022 1 [place] [id number] Ambreen [facility] [id number] Ambreen Bras 01/28/2023 1 [place] [id number] [facility] [id number] Ambreen Bras 02/26/2023 1 [place] [id number] Ambreen Hutchison [id number] Ambreen Hutchison Notes Date Note Type Note Provider Name and Address Organization Details Recorded Time 05/31/2022 text/html Here today c/o abdominal pain last week and had pain and had a bloody BM and was mixed in with stool. Had a colonoscopy 5 years ago. Needs colonoscopy again.No mucus in the stool. No hx of diverticulitis. Pain lasted x 2 days. Blood in stool x one time. No n/v had loose stool but not diarrhea. Suad Berg MD [address] [place], [place], [address], [employer] 05/31/2022 18:40:21 01/28/2023 text/html right carotid blocked . ; right ear fullness , no fever HELEN Plascencia [address], [place], [address], [employer] 02/07/2023 23:21:06 02/26/2023 text/html right carotid on ly 50 % left 10%, they will not consider surgery till carotid 85% blocked , risk of throwing a clot HELEN Plascencia [address] [place], [place], [address], [employer] 02/26/2023 22:06:30 OBGyn Episode No OBEpisode recorded.
[2024-01-23 09:54] VITALS: BP 143/72; PULSE 80; RESP 18; TEMP 36.3; O2SAT 100
--- NOTE | 2024-01-23 10:21 | ED.SEIZURE ---
HPI - Seizure General Chief Complaint: Seizure <Yossi Marcus PA-C - Last Filed: 01/23/24 17:22> Stated Complaint: seizures <Yossi Marcus PA-C - Last Filed: 01/23/24 17:22> Time Seen by Provider: 01/23/24 10:02 <Yossi Marcus PA-C - Last Filed: 01/23/24 17:22> Source: patient <Yossi Marcus PA-C - Last Filed: 01/23/24 17:22> Mode of arrival: ambulatory <Yossi Marcus PA-C - Last Filed: 01/23/24 17:22> Limitations: no limitations <Yossi Marcus PA-C - Last Filed: 01/23/24 17:22> History of Present Illness HPI Narrative: This is a 58-year-old female who presents to the ED for chief complaint of a seizure episode this morning just prior to arrival. Patient was recently diagnosed with seizure disorder about 6 months ago. She has had 3 seizures in total after today. Reports that she has been following with nephrology and working on Keppra dosing. She has been taking her Keppra as prescribed. is bedside states that the seizure lasted for a couple of minutes. He was in the other room when it started but was able to get through her after. States that it took about 30 minutes for her to come back to complete normal mental status baseline. Patient states that she has a little pain in her head, neck and interscapular back from the fall. Denies any further complaints. <Yossi Marcus PA-C - Last Filed: 01/23/24 17:22> Related Data Home Medications: Home Medications ?Medication ?Instructions ?Recorded ?Confirmed ?Last Taken ?Type norethindrone 0.4 mg-ethinyl 1 tablet PO HS 06/14/22 01/14/24 Unknown History estradiol 35 mcg tablet multivit with minerals-iron 18 1 tablet PO HS 06/22/22 01/14/24 Unknown History mg-folic ac 400 mcg-vit K 25 mcg tablet (Adults Multivitamin) omega 7-weq-apf-fish oil 1,200 mg 1 cap PO HS 06/22/22 01/14/24 Unknown History (144 mg-216 mg) capsule (Fish Oil) levacetam See Rx Instructions PO .COMPLEX 01/14/24 01/14/24 Unknown History <oYssi Marcus PA-C - Last Filed: 01/23/24 17:22> Allergies/Adverse Reactions: Allergies Allergy/AdvReac Type Severity Reaction Status Date / Time Sulfa (Sulfonamide Allergy Intermediate Rash Verified 01/23/24 09:58 Antibiotics) <Yossi Marcus PA-C - Last Filed: 01/23/24 17:22> Review of Systems Review of Systems: All systems as dictated in HPI <Yossi Marcus PA-C - Last Filed: 01/23/24 17:22> [facility] Past Medical History Medical History: Medical History (Updated 01/23/24 @ 11:02 by Yossi Marcus PA-C) Seizure disorder Mitral valve prolapse 05/14/2017 GERD (gastroesophageal reflux disease) Hypertension <Yossi Marcus PA-C - Last Filed: 01/23/24 17:22> Surgical History Surgical History: Surgical History History of wisdom tooth extraction History of esophagogastroduodenoscopy <Yossi Marcus PA-C - Last Filed: 01/23/24 17:22> Family History Family History: Family History Father Family history of heart disease in male family member before age 55 Family history of elevated blood lipids Family history of cardiovascular disease Other Family history of malignant neoplasm <Yossi Marcus PA-C - Last Filed: 01/23/24 17:22> Social History Social History: Social History Social History: Surrogate medical decision maker: Severino Hutchison, spouse. Code status: Full code. Smoking packs per day: 0.5 Smoking cigarettes per day: 10.0 Years smoked: 4 Smoking pack-years: 2.00 Smoking status: Former smoker Tobacco type: cigarettes Smoking end date: 02/11/89 Alcohol intake: current Drinks per week: 1 Substance use: never Substance use type: does not use Do You Feel Safe in your Home?: Yes Lack of Transportation: No Lack of Food: Never True Current Housing: I Have Housing Concerned About Future Housing: No Difficulty Paying Gas/Electric Bills: No Difficulty Paying for Meds: No Currently Unemployed: No Education: Bachelor's Degree Difficulty w/ Childcare or Family Care: No Spiritual care concerns: No <Yossi Marcus PA-C - Last Filed: 01/23/24 17:22> Exam Narrative: GENERAL: Well-appearing, well-nourished, and in no acute distress. HEAD: Normocephalic, atraumatic. EYES: PERRLA and EOMI. ENT: Small right-sided tongue laceration noted. Nares clear, no rhinorrhea or epistaxis. Mucous membranes moist. Oropharynx without tonsillar hypertrophy exudate or other lesions. NECK: Supple. No adenopathy or masses. CHEST: No respiratory distress. Clear to auscultation. No wheezes rales or rhonchi HEART: Regular rate and rhythm. No murmur heard. Normal peripheral pulses. ABDOMEN: Soft, nontender, nondistended, normal active bowel sounds. MSK: Mild tenderness to the midline cervical and thoracic spine. Normal range of motion. No edema. SKIN: Warm, dry, no rash. NEURO: Alert and oriented x4. No focal deficits. 5/5 strength and sensation in the upper and lower extremities. PSYCH: Normal mood and affect. <Yossi Marcus PA-C - Last Filed: 01/23/24 17:22> Course RN CORONARY CARE UNIT/PA Physician Supervision I agree with midlevel documentation; I performed the medical decision making component of this evaluation. <Flaquita Henderson MD - Last Filed: 01/23/24 18:13> Vital Signs Vital signs: Vital Signs Temperature 97.4 F L 01/23/24 09:54 Pulse Rate 80 01/23/24 09:54 Respiratory Rate 18 01/23/24 09:54 Blood Pressure 143/72 H 01/23/24 09:54 Pulse Oximetry 100 01/23/24 09:54 Oxygen Delivery Room Air 01/23/24 09:54 Temperature 97.4 F L 01/23/24 09:54 Pulse Rate 69 01/23/24 11:42 Respiratory Rate 16 01/23/24 11:42 Blood Pressure 146/78 H 01/23/24 11:42 Pulse Oximetry 100 01/23/24 11:42 Oxygen Delivery Room Air 01/23/24 11:03 <Yossi Marcus PA-C - Last Filed: 01/23/24 17:22> Vital Signs Temperature 97.4 F L 01/23/24 09:54 Pulse Rate 80 01/23/24 09:54 Respiratory Rate 18 01/23/24 09:54 Blood Pressure 143/72 H 01/23/24 09:54 Pulse Oximetry 100 01/23/24 09:54 Oxygen Delivery Room Air 01/23/24 09:54 Temperature 97.4 F L 01/23/24 09:54 Pulse Rate 69 01/23/24 11:42 Respiratory Rate 16 01/23/24 11:42 Blood Pressure 146/78 H 01/23/24 11:42 Pulse Oximetry 100 01/23/24 11:42 Oxygen Delivery Room Air 01/23/24 11:03 <Flaquita Henderson MD - Last Filed: 01/23/24 18:13> MDM - Seizure MDM Narrative Medical decision making narrative: This is a 58-year-old female who presents to the ED for breakthrough seizure. She was diagnosed in August and has been taking Keppra. Vitals are normal. Exam is benign on arrival. She is completely alert oriented and neurologically intact. She did have injuries to the head so CT imaging of the head, facial bones, cervical spine and thoracic spine were ordered. CT imaging of the above is grossly negative for acute findings. She was given loading dose of Keppra IV here. She remained completely neurologically intact. She will follow-up closely with her neurologist who knows about her visit today. Pt will be discharged in stable condition. Return precautions given and supportive measures discussed. Pt is understanding and agreeable with plan for discharge and follow-up with PCP. <Yossi Marcus PA-C - Last Filed: 01/23/24 17:22> Discharge Plan Discharge Clinical Impression: Breakthrough seizure <Yossi Marcus PA-C - Last Filed: 01/23/24 17:22> Patient Disposition: Home, Self-Care <Yossi Marcus PA-C - Last Filed: 01/23/24 17:22> Condition: Stable <Yossi Marcus PA-C - Last Filed: 01/23/24 17:22> Instructions: Antibiotic Form <Yossi Marcus PA-C - Last Filed: 01/23/24 17:22> Additional Instructions: Exam and imaging today are reassuring. Please continue taking your Keppra as prescribed and follow-up closely with neurologist on this issue. Take Tylenol and ibuprofen regularly for pain control. If you have any new or worsening symptoms please return to the ER for further evaluation. <Yossi Marcus PA-C - Last Filed: 01/23/24 17:22> Patient Language: Icelandic <Yossi Marcus PA-C - Last Filed: 01/23/24 17:22> Prescriptions: No Action norethindrone-ethin estradiol 0.4-35 mg-mcg tablet 1 tablet PO HS levacetam See Rx Instructions PO .COMPLEX Rx Instructions: 25mg orally; Take 1 tab twice daily omega 7-jhz-huc-fish oil [Fish Oil] 1,200 (144-216) mg Capsule 1 cap PO HS Adults Multivitamin 18 mg iron-400 mcg-25 mcg Tablet 1 tablet PO HS atorvastatin 20 mg tablet See Rx Instructions .ROUTE .COMPLEX Qty: 90 0RF Dose Instruction: Take 1 tablet by mouth once daily Rx Instructions: Take 1 tablet by mouth once daily clopidogrel 75 mg tablet See Rx Instructions .ROUTE .COMPLEX Qty: 90 0RF Dose Instruction: Take 1 tablet by mouth once daily Rx Instructions: Take 1 tablet by mouth once daily lisinopril 20 mg tablet See Rx Instructions .ROUTE .COMPLEX Qty: 90 0RF Dose Instruction: Take 1 tablet by mouth once daily Rx Instructions: Take 1 tablet by mouth once daily <Yossi Marcus PA-C - Last Filed: 01/23/24 17:22> Follow-up/Referrals: Jayden Cadet DO [Primary Care Provider] - <Yossi Marcus PA-C - Last Filed: 01/23/24 17:22> Time of Disposition: 11:02 <Yossi Marcus PA-C - Last Filed: 01/23/24 17:22> 11:02 <Flaquita Henderson MD - Last Filed: 01/23/24 18:13>
[2024-01-23] MEDS: levETIRAcetam 1500MG/NACL100ML 1,500 MG/100 ML BAG 400 MG IVPB (11:01)
[2024-01-23 11:03] VITALS: BP 150/73; PULSE 70; RESP 18; O2SAT 99
[2024-01-23 11:42] VITALS: BP 146/78; PULSE 69; RESP 16; O2SAT 100
== END 2024-01-23 11:43 | disposition home or self-care (01) ==
LOC: ANHED 11:08
PROVIDERS: Emergency Provider Physician Assistant; PCP Internal Medicine
DX: G40.909 Epilepsy, unspecified, not intractable, without status epilepticus (principal); I10 Essential (primary) hypertension; I34.1 Nonrheumatic mitral (valve) prolapse; K21.9 Gastro-esophageal reflux disease without esophagitis; Z87.891 Personal history of nicotine dependence; Z79.02 Long term (current) use of antithrombotics/antiplatelets; Z79.890 Hormone replacement therapy; Z79.899 Other long term (current) drug therapy
CPT/HCPCS: 70450; 70486; 72125; 72128; 96374; 99284; J1953

== ENCOUNTER 2024-10-19 10:17 | Outpatient (CLI) | payer BC, SELFPAY ==
--- NOTE | ~2024-10-19 | US_ITS ---
EXAMINATION: US pelvic complete w TV DATE: 10/19/2024 10:37 INDICATION: Left lower quadrant abdominal pain. TECHNIQUE: Multiple transabdominal sonographic images of the pelvis were obtained. COMPARISON: None. FINDINGS: The uterus measures 7.1 x 2.7 x 3.6 cm. There is no free fluid in the pelvis. The endometrial complex measures 2 mm in thickness. The right ovary measures 2.7 x 1.3 x 2.1 cm. The left ovary measures 1.7 x 1.2 x 1.8 cm. There is normal vascular flow in the ovaries. IMPRESSION: 1. Normal pelvis. Reviewed, dictated and finalized at location E. IMPRESSION: 1. Normal pelvis.
== END 2024-10-19 10:18 | disposition home or self-care (01) ==
LOC: MICIMG 10:18
PROVIDERS: PCP Obstetrics & Gynecology Gynecology; Visit Provider Obstetrics & Gynecology Gynecology
DX: R10.12 Left upper quadrant pain (principal)
CPT/HCPCS: 76830; 76856

== ENCOUNTER 2025-01-10 13:02 | Emergency (ER) | payer BC, SELFPAY ==
--- NOTE | ~2025-01-10 | XR_ITS ---
Examination: XR wrist LT min 3V Clinical History: FELL OFF STEP STOOL. LEFT WRIST PAIN Comparison: None Technique: 4 views left wrist Findings/impression: 1. Nondisplaced impacted fracture distal radius. No definite intra-articular extension. 2. No other acute abnormality identified. Reviewed, dictated and finalized at location R. K CLEANER
[2025-01-10 13:20] VITALS: BP 144/65; PULSE 60; RESP 16; TEMP 36.5; O2SAT 100
--- NOTE | 2025-01-10 14:29 | ED_ITS ---
HPI - Extremity Injury (Upper) General Chief Complaint: Extremity Injury, Upper Stated Complaint: INJURED L WRIST Time Seen by Provider: 01/10/25 14:09 Source: patient and RN notes reviewed Mode of arrival: ambulatory Limitations: no limitations History of Present Illness HPI narrative: 59-year-old female patient presents today with left wrist injury. Just prior to arrival, she fell off the last step of a step stool at home onto her wrist. Denies numbness or tingling. At rest with ice she rates her pain 2/10, with but this increases significantly with movement. No OTC treatment prior to arrival. Related Data Home Medications ?Medication ?Instructions ?Recorded ?Confirmed ?Last Taken ?Type multivit with minerals-iron 18 1 tablet PO HS 06/22/22 11/12/24 Unknown History mg-folic ac 400 mcg-vit K 25 mcg tablet (Adults Multivitamin) levetiracetam 750 mg tablet 750 mg PO 11/12/24 5 Unknown History Allergies Allergy/AdvReac Type Severity Reaction Status Date / Time Sulfa (Sulfonamide Allergy Intermediate Rash Verified 01/10/25 13:17 Antibiotics) [facility] Past Medical History Medical History Seizure disorder Mitral valve prolapse 05/14/2017 GERD (gastroesophageal reflux disease) Hypertension Surgical History Surgical History History of wisdom tooth extraction History of esophagogastroduodenoscopy Family History Family History Father Family history of heart disease in male family member before age 55 Family history of elevated blood lipids Family history of cardiovascular disease Other Family history of malignant neoplasm Social History Social History Social History: Surrogate medical decision maker: Severino Hutchison, spouse. Code status: Full code. Smoking packs per day: 0.5 Smoking cigarettes per day: 10.0 Years smoked: 4 Smoking pack-years: 2.00 Smoking status: Former smoker Tobacco type: cigarettes Smoking end date: 01/01/90 Alcohol intake: current Drinks per week: 1 Substance use: never Substance use type: does not use Lack of Transportation: No Lack of Food: Never True Current Housing: I Have Housing Concerned About Future Housing: No Difficulty Paying Gas/Electric Bills: No Difficulty Paying for Meds: No Currently Unemployed: No Education: Bachelor's Degree Difficulty w/ Childcare or Family Care: No Spiritual care concerns: No Comments At time of signature, I have reviewed and agree with nursing past medical, surgical, social and family history unless otherwise noted. Please see nursing chart for further information. There is no relevant family history pertinent to the presenting complaint Exam Narrative: GENERAL: Well-appearing, well-nourished, and in no acute distress. HEAD: Normocephalic, atraumatic. EYES: EOMI. No redness or drainage. Conjunctivae normal. ENT: Mucous membranes pink and moist. NECK: Normal AROM. CHEST: No respiratory distress. EXTREMITIES: Left wrist: Tenderness to the distal radius with mild localized edema. Tenderness to the distal ulna, hand or fingers. Distal sensation intact in all 5 fingers. Capillary refill normal. Radial pulse normal. Decreased range of motion of the wrist due to pain and swelling. SKIN: Warm, dry, no rash. Capillary refill normal. Normal skin turgor. NEURO: No focal deficits. Alert and oriented x3. Gait steady. PSYCH: Normal affect. No signs of depression or anxiety. Course Course Level of Care: Express Care Visit Vital Signs Vital signs: Vital Signs Temperature 97.7 F 01/10/25 13:20 Pulse Rate 60 01/10/25 13:20 Respiratory Rate 16 01/10/25 13:20 Blood Pressure 144/65 H 01/10/25 13:20 Pulse Oximetry 100 01/10/25 13:20 Temperature 97.7 F 01/10/25 13:20 Pulse Rate 60 01/10/25 13:20 Respiratory Rate 16 01/10/25 13:20 Blood Pressure 144/65 H 01/10/25 13:20 Pulse Oximetry 100 01/10/25 13:20 Reviewed Procedures Orthopedic Splinting/Casting Injury #1: Splinting/Casting Date: 01/10/25 Splinting/Casting Time: 14:34 Side: left OCL: short arm Pre-Procedure Neuro Vascular Exam: normal Post-Procedure Neuro Vascular Exam: normal Other Orthopedic Equipment: other (Sling) Additional Comments: placed by [facility] MDM - Extremity Injury (Upper) MDM Narrative Medical decision making narrative: 59-year-old female patient presents today with left wrist injury. Just prior to arrival, she fell off the last step of a step stool at home onto her wrist. Denies numbness or tingling. At rest with ice she rates her pain 2/10, with but this increases significantly with movement. No OTC treatment prior to arrival. Upon exam, tenderness and localized edema to the distal radius. Neurovascularly intact. X-ray shows Findings/impression:1. Nondisplaced impacted fracture distal radius. No definite intra-articular extension. 2. No other acute abnormality identified. Reviewed, dictated and finalized at location R. GENCY NURSE. Short-arm OCL applied with sling. Recommend orthopedic follow-up for further evaluation and treatment. Patient agrees with plan. Vital signs stable. Anticipatory guidance given. Differential Diagnosis Differential diagnosis: Likely sprain and strain of wrist and fracture of wrist Imaging Data Radiologist's impression: Findings/impression: 1. Nondisplaced impacted fracture distal radius. No definite intra-articular extension. 2. No other acute abnormality identified. Reviewed, dictated and finalized at location R. GENCY NURSE Critical Care Time Critical Care Time Critical Care Time: No Discharge Plan Discharge Clinical Impression: Distal radius fracture, left Qualifiers: Encounter type: initial encounter Fracture type: closed Fracture morphology: unspecified fracture morphology Qualified Code(s): S52.502A - Unspecified fracture of the lower end of left radius, initial encounter for closed fracture Patient Disposition: Home Condition: Stable Instructions: Wrist Fracture in Adults (ED) Additional Instructions: Your x-ray shows a fracture of your wrist. Please keep the splint dry and intact until follow-up with orthopedics. Elevate and ice the wrist. Take Tylenol or ibuprofen for pain, if able. Patient Language: German Prescriptions: No Action levetiracetam 750 mg tablet 750 mg PO Adults Multivitamin 18 mg iron-400 mcg-25 mcg Tablet 1 tablet PO HS atorvastatin 20 mg tablet See Rx Instructions .ROUTE .COMPLEX Qty: 90 1RF Dose Instruction: Take 1 tablet by mouth once daily Rx Instructions: Take 1 tablet by mouth once daily lisinopril 20 mg tablet See Rx Instructions .ROUTE .COMPLEX Qty: 90 1RF Dose Instruction: Take 1 tablet by mouth once daily Rx Instructions: Take 1 tablet by mouth once daily Follow-up/Referrals: Jt Leung MD [Physician, Orthopedics] Jayden Cadet DO [Primary Care Provider, Internal Medicine] Time of Disposition: 14:33
== END 2025-01-10 14:43 | disposition home or self-care (01) ==
PROVIDERS: Emergency Provider Nurse Practitioner; PCP Internal Medicine
DX: S52.502A Unspecified fracture of the lower end of left radius, initial encounter for closed fracture (principal); W17.89XA Other fall from one level to another, initial encounter; G40.909 Epilepsy, unspecified, not intractable, without status epilepticus; I10 Essential (primary) hypertension; I34.1 Nonrheumatic mitral (valve) prolapse; K21.9 Gastro-esophageal reflux disease without esophagitis; Z87.891 Personal history of nicotine dependence
CPT/HCPCS: 29125; 73110; 99214; A4565; G0463

== ENCOUNTER 2025-01-15 01:32 | Day surgery (SDC) | payer BC, SELFPAY ==
[2025-01-13 10:54] VITALS: BMI 29.6
--- NOTE | 2025-01-13 11:07 | PC.NURSE ---
[facility] has started construction of its new state of the art ER which will open Spring 2026. With this, we anticipate parking may be a challenge for some our surgical patients and families. Parking spaces are limited but are available for all Surgical, obstetrics, and ER patients sharing this lot. If you arrive and find you are having a hard time finding a parking space, please note that we understand the challenges, please drive around the hospital and park near Hospital Entrance 1. When you enter this entrance, you can ask a volunteer to direct or take you back to the surgical waiting area to check in. We appreciate everyone?s understanding of these expected challenges while we build for your future. Report to the Outpatient Waiting Room, entrance under the green pavilion located off [address], at time _12:45pm on date ___01/15/25____. Planned Procedure Time: _2:45pm .? Time changes happen often and if your time is changed the preop area will call you the afternoon before. - You and your visitor will be asked to self-screen and do not enter if you have any COVID symptoms. Please call surgeon if you need to reschedule. - A mask is optional within the hospital at this time. Patients may have - No food or drink after Midnight until time of surgery. No smoking, or chewing tobacco (or any form of nicotine). No chewing gum, candy or mints am of surgery. Take only the following medications with a SIP of water on the morning of surgery: Keppra, Ibuprofen as needed DO NOT STOP ANY OF YOUR OTHER PRESCRIPTION MEDICATIONS PRIOR TO SURGERY EXCEPT THE FOLLOWING Hold all vitamins and supplements for 3 days per anesthesiologist. No more till posts op- pt aware. Medications to discontinue per physician NONE Date to take last dose NONE Please no make-up, nail romansh, hairspray, perfume, deodorant, or body powder the day of surgery.? No jewelry (including any body piercings) or valuables the day of surgery, leave them at home.? Please take a shower or bath the night before, or the morning of, surgery with an antibacterial soap. Wear comfy clothes - Jewelry must be removed prior to entering the operating room.? Rings and piercings that are not removed may be cut off. - The hospital will not accept responsibility for valuables.? - Please leave all valuables, including medications, at home the day of surgery. If you are going home after surgery, a licensed buggy driver must drive you home.? - NO public transportation without another adult if you receive anesthesia. - We recommend that an adult stay with you for 24 hours following discharge. - We also recommend that you do not drive, make important decision, drink alcoholic beverages, or take any drugs that were not prescribed by your health care provider for at least 24 hours after your discharge time. Follow any additional instructions given to you from your surgeon. Telephone instructions given to ____Patient and asked if any additional questions and then verbalized understanding. Patient advised to call surgeon office or pre surgery nurse liaison [phone] if any additional questions.
--- NOTE | ~2025-01-15 | XR_ITS ---
EXAMINATION: XR surgery orthopedic DATE: 01/15/2025 16:51 INDICATION: Left wrist surgery with distal left radial fracture. TECHNIQUE: 2 fluoroscopic images of the left wrist were obtained procedure performed by Dr. Vega. Radiologist was not present for the imaging or procedure. The amount of fluoroscopy time used during this procedure was 0.1 minutes. The dose area product was 0.15 cGcm^2. COMPARISON: 01/10/2025 FINDINGS: Again seen is a nondisplaced extra-articular fracture of the distal left radial metaphysis. There is suggestion of some posterior impaction with slight dorsal tilt of the distal articular surface although assessment is limited by some obliquity on the lateral projection. Fiberglas splinting along the radial side of the wrist. IMPRESSION: 1. Interval splinting a nondisplaced likely dorsally impacted extra articular fracture of the distal left radius. See procedure note for further detail. Reviewed, dictated and finalized at location A. GER TARGET IMPRESSION: 1. Interval splinting a nondisplaced likely dorsally impacted extra articular f racture of the distal left radius. See procedure note for further detail.
--- OUTSIDE RECORDS SUMMARY | 2025-01-15 01:35 | XMS_ITS | Data Portability ---
Author Organization [facility] [place], Main Office Address [address] [place] [address] Assessment No assessment recorded. Plan of Treatment Reminders Order Date Submit Date Provider Last Modified By Organization Details Last Modified Time Details Appointments None recorded. Lab lipid panel, serum 2022 023 [facility] (Lab), [address] [place], [address], 3 06:07:02 CMP, serum or plasma 2022 023 [facility] (Lab), [address] [place], [address], 3 06:07:03 CK (creatine kinase), total, serum 2022 023 [facility] (Lab), [address] [place], [address], 3 06:07:05 CBC w/ auto diff 2022 023 [facility] (Lab), [address] [place], [address], 3 06:07:06 TSH, serum or plasma 2022 023 [facility] (Lab), [address] [place], [address], 3 06:07:07 Referral vascular surgeon referral - 57 y/o with TIA Jan 14 , in [facility]. Please eval and treat . Thank you 2022 023 [email or web address] Blaine Donato, [facility] [facility] [address], [place], [address], 3 10:19:29 gastroenter ologist referral 2022 023 GABRIEL Palacio MD, [address] [facility] [address], [place], [address], 3 12:56:47 Procedures None recorded. Surgeries None recorded. Imaging None recorded. Medication Orders amoxicillin 500 mg capsule 2023 024 [facility] #[id number], [address], [place], [place], [id number], 4 22:03:35 amoxicillin 500 mg capsule [address] [facility] #54048, [address], [place], [place], [id number], 4 12:31:07 clopidogrel 75 mg tablet 2022 023 [facility], [address], [place], [place], [id number], 3 14:40:56 atorvastati n 20 mg tablet 2022 023 [facility]163, [address] [facility], [place], [place], [id number], 3 14:42:31 Patient TargetsNo targets recorded. Patient InstructionsNo instructions recorded. Reason for Referral Critical Care Specialist Referral for Hematochezia Referring Physician: Suad Berg, Family Medicine, Encounter Date: 05/31/2022 Vascular Surgeon Referral fo r Disorder of carotid artery 57 y/o with TIA Jan 14 , in [facility]. Please eval and treat . Thank you Referring Physician: John Sanderson, Family Medicine, Encounter Date: 01/28/2023 Results Created Date Observation Date Name Description Value Unit Range Abnormal Flag Note LastModifiedBy Organization Detail LastModifiedTime 12/21/19 21 12/21/2020 TSH W/REF SILVIA TO FT4 TSH w/reflex to FT4 2.32 mIU/L 0.40-4 .50 normal Not Available [facility] [address] [place], [address], 12/21/2020 05:06:11 12/21/19 21 12/21/2020 COMPR EHENS OSEAS METAB OLIC PANEL glucose 89 mg/dL 65-99 normal Fasti ng refer ence inter bob Not Available [address] [address] [place], [address], 12/21/2020 05:06:10 12/21/19 21 12/21/2020 COMPR EHENS OSEAS METAB OLIC PANEL urea nitrogen (BUN) 14 mg/dL 7-25 normal Not Available [facility] [address] [address] [place], [address], 12/21/2020 05:06:10 12/21/19 21 12/21/2020 COMPR EHENS OSEAS METAB OLIC PANEL creatinine 0.79 mg/dL 0.50-1 .05 normal For patie nts >49 years of age, the refer ence limit for Creat inine is appro ximat matt 13% highe r for peopl e ident ified as Afric an-Am rosalba n. Not Available [facility] [address] [address] [place], [address], 12/21/2020 05:06:10 12/21/1912/21/2020 COMPR EHENS OSEAS METAB OLIC PANEL eGFR non-afr. st [facility] 84 mL/mi n/1.7 3m2 > or = 60 normal Not Available [facility] [address] [address] [place], [address], 12/21/2020 05:06:10 12/21/19 21 12/21/2020 COMPR EHENS OSEAS METAB OLIC PANEL eGFR 97 mL/mi n/1.7 3m2 > or = 60 normal Not Available [address], [address], 12/21/2020 05:06:10 12/21/19 21 12/21/2020 COMPR EHENS OSEAS METAB OLIC PANEL BUN/creatini ne ratio not applic able (calc ) 6-22 Not Available [address], [address], 12/21/2020 05:06:10 12/21/19 21 12/21/2020 COMPR EHENS OSEAS METAB OLIC PANEL sodium 138 mmol/ L 135-14 6 normal Not Available [address], [address], 12/21/2020 05:06:10 12/21/19 21 12/21/2020 COMPR EHENS OSEAS METAB OLIC PANEL potassium 4.5 mmol/ L 3.5-5. 3 normal Not Available [address], [address], 12/21/2020 05:06:10 12/21/19 21 12/21/2020 COMPR EHENS OSEAS METAB OLIC PANEL chloride 105 mmol/ L 98-110 normal Not Available [address], [address], 12/21/2020 05:06:10 12/21/19 21 12/21/2020 COMPR EHENS OSEAS METAB OLIC PANEL carbon dioxide 27 mmol/ L 20-32 normal Not Available [address], [address], 12/21/2020 05:06:10 12/21/19 21 12/21/2020 COMPR EHENS OSEAS METAB OLIC PANEL calcium 9.5 mg/dL 8.6-10 .4 normal Not Available [address], [address], 12/21/2020 05:06:10 12/21/19 21 12/21/2020 COMPR EHENS OSEAS METAB OLIC PANEL protein, total 6.6 g/dL 6.1-8. 1 normal Not Available [address], [address], 12/21/2020 05:06:10 12/21/19 21 12/21/2020 COMPR EHENS OSEAS METAB OLIC PANEL albumin 4.2 g/dL 3.6-5. 1 normal Not Available [address], [address], 12/21/2020 05:06:10 12/21/19 21 12/21/2020 COMPR EHENS OSEAS METAB OLIC PANEL globulin 2.4 g/dL_ (calc ) 1.9-3. 7 normal Not Available [address], [address], 12/21/2020 05:06:10 12/21/19 21 12/21/2020 COMPR EHENS OSEAS METAB OLIC PANEL albumin/glob ulin ratio 1.8 (calc ) 1.0-2. 5 normal Not Available [address], [address], 12/21/2020 05:06:10 12/21/19 21 12/21/2020 COMPR EHENS OSEAS METAB OLIC PANEL bilirubin, total 0.4 mg/dL 0.2-1. 2 normal Not Available [address], [address], 12/21/2020 05:06:10 12/21/19 21 12/21/2020 COMPR EHENS OSEAS METAB OLIC PANEL alkaline phosphatase 66 U/L 37-153 normal Not Available [address] [address] [place], [address], 12/21/2020 05:06:10 12/21/19 21 12/21/2020 COMPR EHENS OSEAS METAB OLIC PANEL AST 17 U/L 10-35 normal Not Available [address], [address], 12/21/2020 05:06:10 12/21/19 21 12/21/2020 COMPR EHENS OSEAS METAB OLIC PANEL ALT 22 U/L 6-29 normal Not Available [address], [address], 12/21/2020 05:06:10 12/21/19 21 12/21/2020 LIPID PANEL , STAND CAROL cholesterol, total 195 mg/dL <200 normal Not Available [address], [address], 12/21/2020 05:06:09 12/21/19 21 12/21/2020 LIPID PANEL , STAND CAROL HDL cholesterol 70 mg/dL > or = 50 normal Not Available [address], [address], 12/21/2020 05:06:09 12/21/1912/21/2020 LIPID PANEL , STAND CAROL triglyceride s 97 mg/dL <150 normal Not Available [address], [address], 12/21/2020 05:06:09 12/21/1912/21/2020 LIPID PANEL , STAND [place] LDL-choleste rol 106 mg/dL _(brenda c) high Refer ence range : <100 Teo able range <100 mg/dL for prima ry preve ntion ; <70 mg/dL for patie nts with CHD or diabe tic patie nts with > or = 2 CHD risk facto rs. LDL-C is now calcu lated using the Katey n-Hop kins melodieu beth n, which is a valid ated novel metho d provi aurelio tangte r accur acy than the Fried nancy equat ion in the estim ation of LDL-C . Katey n SS et al. AV. 2013; 310(3 0): 2061- 2068 (http ://ed ucati on.[facility] [employer]. com/f aq/FA Q164) Not Available [address] [address] [place], [address], 12/21/2020 05:06:09 12/21/1912/21/2020 LIPID PANEL , STAND CAROL chol/HDLC ratio 2.8 (calc ) <5.0 normal Not Available [address], [address], 12/21/2020 05:06:09 12/21/1912/21/2020 LIPID PANEL , STAND CAROL non HDL cholesterol 125 mg/dL _(brenda c) <130 normal For patie nts with diabe pj plus 1 major ASCVD risk facto r, treat ing to a non-H DL-C goal of <100 mg/dL (LDL- C of <70 mg/dL ) is consi gabyd a alfredo brandono n. Not Available [address], [address], 12/21/2020 05:06:09 02/01/20 23 02/01/2023 LIPID PANEL , STAND CAROL cholesterol, total 119 mg/dL <200 normal Not Available [address] [address] [place], [address], 02/01/2023 06:07:02 02/01/20 23 02/01/2023 LIPID PANEL , STAND CAROL HDL cholesterol 58 mg/dL > or = 50 normal Not Available [address] [address] [place], [address], 02/01/2023 06:07:02 02/01/20 23 02/01/2023 LIPID PANEL , STAND CAROL triglyceride s 92 mg/dL <150 normal Not Available [address] [place], [address], 02/01/2023 06:07:02 02/01/20 23 02/01/2023 LIPID PANEL [...] lated using the Katey n-Hop kins calcu latfaviola n, which is a valid ated novel metho d provi ding elmer r accur acy than the Fried nancy equat ion in the estim ation of LDL-C . Katey jacobson SS et al. AV. 2013; 310(1 9): 2061- 2068 (http ://ed ucati on.[facility] [employer]. Control4/f aq/FA Q164) Not Available [facility] [address] [address] [place], [address], 02/01/2023 06:07:02 02/01/20 23 02/01/2023 LIPID PANEL , STAND CAROL chol/HDLC ratio 2.1 (calc ) <5.0 normal Not Available [facility] [address] [address] [place], [address], 02/01/2023 06:07:02 02/01/20 23 02/01/2023 LIPID PANEL , STAND CAROL non HDL cholesterol 61 mg/dL _(brenda c) <130 normal For patie nts with diabe pj plus 1 major ASCVD risk facto r, treat ing to a non-H DL-C goal of <100 mg/dL (LDL- C of <70 mg/dL ) is richard ellis c optio n. Not Available [facility] [address] [address] [place], [address], 02/01/2023 06:07:02 02/01/20 23 02/01/2023 COMPR EHENS OSEAS METAB OLIC PANEL glucose 86 mg/dL 65-99 normal Fasti ng refer ence inter bob Not Available [address], [address], 02/01/2023 06:07:03 02/01/20 23 02/01/2023 COMPR EHENS OSEAS METAB OLIC PANEL urea nitrogen (BUN) 8 mg/dL 7-25 normal Not Available [address], [address], 02/01/2023 06:07:03 02/01/20 23 02/01/2023 COMPR EHENS OSEAS METAB OLIC PANEL creatinine 0.75 mg/dL 0.50-1 .03 normal Not Available [address], [address], 02/01/2023 06:07:03 02/01/20 23 02/01/2023 COMPR EHENS OSEAS METAB OLIC PANEL eGFR 92 mL/mi n/1.7 3m2 > or = 60 normal Not Available [address], [address], 02/01/2023 06:07:03 02/01/20 23 02/01/2023 COMPR EHENS OSEAS METAB OLIC PANEL BUN/creatini ne ratio SEE NOTE: (calc ) 6-22 Not Repor gregoria: BUN and Creat inine are withi n refer ence range . Not Available [address], [address], 02/01/2023 06:07:03 02/01/20 23 02/01/2023 COMPR EHENS OSEAS METAB OLIC PANEL sodium 142 mmol/ L 135-14 6 normal Not Available [address], [address], 02/01/2023 06:07:03 02/01/20 23 02/01/2023 COMPR EHENS OSEAS METAB OLIC PANEL potassium 4.3 mmol/ L 3.5-5. 3 normal Not Available [facility] [address] [place], [address], 02/01/2023 06:07:03 02/01/20 23 02/01/2023 COMPR EHENS OSEAS METAB OLIC PANEL chloride 108 mmol/ L 98-110 normal Not Available [address] [address] [place], [address], 02/01/2023 06:07:03 02/01/20 23 02/01/2023 COMPR EHENS OSEAS METAB OLIC PANEL carbon dioxide 29 mmol/ L 20-32 normal Not Available [address] [place], [address], 02/01/2023 06:07:03 02/01/20 23 02/01/2023 COMPR EHENS OSEAS METAB OLIC PANEL calcium 9.3 mg/dL 8.6-10 .4 normal Not Available [address] [address] [place], [address], 02/01/2023 06:07:03 02/01/20 23 02/01/2023 COMPR EHENS OSEAS METAB OLIC PANEL protein, total 6.7 g/dL 6.1-8. 1 normal Not Available [address], [address], 02/01/2023 06:07:03 02/01/20 23 02/01/2023 COMPR EHENS OSEAS METAB OLIC PANEL albumin 4.3 g/dL 3.6-5. 1 normal Not Available [facility] [address] [address] [place], [address], 02/01/2023 06:07:03 02/01/20 23 02/01/2023 COMPR EHENS OSEAS METAB OLIC PANEL globulin 2.4 g/dL_ (calc ) 1.9-3. 7 normal Not Available [address] [place], [address], 02/01/2023 06:07:03 02/01/20 23 02/01/2023 COMPR EHENS OSEAS METAB OLIC PANEL albumin/glob ulin ratio 1.8 (calc ) 1.0-2. 5 normal Not Available [address], [address], 02/01/2023 06:07:03 02/01/20 23 02/01/2023 COMPR EHENS OSEAS METAB OLIC PANEL bilirubin, total 0.4 mg/dL 0.2-1. 2 normal Not Available [address], [address], 02/01/2023 06:07:03 02/01/20 23 02/01/2023 COMPR EHENS OSEAS METAB OLIC PANEL alkaline phosphatase 79 U/L 37-153 normal Not Available [address], [address], 02/01/2023 06:07:03 02/01/20 23 02/01/2023 COMPR EHENS OSEAS METAB OLIC PANEL AST 20 U/L 10-35 normal Not Available [address], [address], 02/01/2023 06:07:03 02/01/20 23 02/01/2023 COMPR EHENS OSEAS METAB OLIC PANEL ALT 23 U/L 6-29 normal Not Available [address], [address], 02/01/2023 06:07:03 02/01/20 23 02/01/2023 CREAT INE KINAS E, TOTAL creatine kinase, total 51 U/L 29-143 normal Not Available [address], [address], 02/01/2023 06:07:05 02/01/20 23 02/01/2023 CBC (INCL UDES DIFF/ PLT) white blood cell count 6.3 thous and/u L 3.8-10 .8 normal Not Available [address], [address], 02/01/2023 06:07:06 02/01/20 23 02/01/2023 CBC (INCL UDES DIFF/ PLT) red blood cell count 4.69 nader on/uL 3.80-5 .10 normal Not Available [address], [address], 02/01/2023 06:07:06 02/01/20 23 02/01/2023 CBC (INCL UDES DIFF/ PLT) hemoglobin 14.2 g/dL 11.7-1 5.5 normal Not Available [address], [address], 02/01/2023 06:07:06 02/01/20 23 02/01/2023 CBC (INCL UDES DIFF/ PLT) hematocrit 41.5 % 35.0-4 5.0 normal Not Available [address], [address], 02/01/2023 06:07:06 02/01/20 23 02/01/2023 CBC (INCL UDES DIFF/ PLT) MCV 88.5 fL 80.0-1 00.0 normal Not Available [address], [address], 02/01/2023 06:07:06 02/01/20 23 02/01/2023 CBC (INCL UDES DIFF/ PLT) MCH 30.3 pg 27.0-3 3.0 normal Not Available [address], [address], 02/01/2023 06:07:06 02/01/20 23 02/01/2023 CBC (INCL UDES DIFF/ PLT) MCHC 34.2 g/dL 32.0-3 6.0 normal Not Available [address], [address], 02/01/2023 06:07:06 02/01/20 23 02/01/2023 CBC (INCL UDES DIFF/ PLT) RDW 12.5 % 11.0-1 5.0 normal Not Available [address], [address], 02/01/2023 06:07:06 02/01/20 23 02/01/2023 CBC (INCL UDES DIFF/ PLT) platelet count 299 thous and/u L 140-40 0 normal Not Available [address], [address], 02/01/2023 06:07:06 02/01/2002/01/2023 CBC (INCL UDES DIFF/ PLT) MPV 10.7 fL 7.5-12 .5 normal Not Available [address], [address], 02/01/2023 06:07:06 02/01/20 23 02/01/2023 CBC (INCL UDES DIFF/ PLT) absolute neutrophils 3723 cells /uL 1500-7 800 normal Not Available [address], [address], 02/01/2023 06:07:06 02/01/20 23 02/01/2023 CBC (INCL UDES DIFF/ PLT) absolute lymphocytes 1871 cells /uL 850-39 00 normal Not Available [address], [address], 02/01/2023 06:07:06 02/01/20 23 02/01/2023 CBC (INCL UDES DIFF/ PLT) absolute monocytes 485 cells /uL 200-95 0 normal Not Available [address], [address], 02/01/2023 06:07:06 02/01/20 23 02/01/2023 CBC (INCL UDES DIFF/ PLT) absolute eosinophils 170 cells /uL 15-500 normal Not Available [address], [address], 02/01/2023 06:07:06 02/01/20 23 02/01/2023 CBC (INCL UDES DIFF/ PLT) absolute basophils 50 cells /uL 0-200 normal Not Available [address], [address], 02/01/2023 06:07:06 02/01/20 23 02/01/2023 CBC (INCL UDES DIFF/ PLT) neutrophils 59.1 % normal Not Available [address], [address], 02/01/2023 06:07:06 02/01/2002/01/2023 CBC (INCL UDES DIFF/ PLT) lymphocytes 29.7 % normal Not Available [address], [address], 02/01/2023 06:07:06 02/01/20 23 02/01/2023 CBC (INCL UDES DIFF/ PLT) monocytes 7.7 % normal Not Available [address], [address], 02/01/2023 06:07:06 02/01/20 23 02/01/2023 CBC (INCL UDES DIFF/ PLT) eosinophils 2.7 % normal Not Available [address], [address], 02/01/2023 06:07:06 02/01/20 23 02/01/2023 CBC (INCL UDES DIFF/ PLT) basophils 0.8 % normal Not Available [address], [address], 02/01/2023 06:07:06 02/01/20 23 02/01/2023 TSH W/REF SILVIA TO FT4 TSH w/reflex to FT4 2.24 mIU/L 0.40-4 .50 normal Not Available [facility] [address], [place], [address], 02/01/2023 06:07:07 03/23/19 23 03/23/2022 MAMMO , scree karthikeyan, digit al, bilat eral No observ ation record ed. [id number] [place], [place], [address], 04/11/2022 19:46:15 01/15/20 23 01/14/2023 CT, brain , w/ contr ast No observ ation record ed. [address] [address], [place], [address], 01/15/2023 08:31:59 01/15/20 23 01/14/2023 XR, chest , 2 view No observ ation record ed. [address] [address], [place], [address], 01/15/2023 08:32:29 01/16/20 23 01/15/2023 MRI, brain + brain stem, w/ contr ast No observ ation record ed. [address] [address], [place], [address], 01/15/2023 10:04:16 01/16/20 23 01/15/2023 US, echo ardio gram, trans thora cic, bubbl e study No observ ation record ed. [address] [address], [place], [address], 01/16/2023 09:29:39 01/17/20 23 01/14/2023 peewee nuous EEG monit bettina berg al compo nent; 12-26 hrs, with VEEG (PROC ) No observ ation record ed. [address] [address], [place], [address], 01/16/2023 11:58:29 03/28/19 24 03/28/2023 MAMMO , scree karthikeyan, digit al, bilat eral No observ ation record ed. [email or web address] [facility] [address] [place], [address], 03/28/2023 11:46:06 Result Notes None recorded. Problems Name Problem SNOMED Code Status Onset Date Resolution Date Notes Provider Name and Address Organization Details Recorded Time Mitral valve prolapse 905748803 Active 2017 Not Available [facility] 3 19:45:27 Hematochezia 377372471 Active 2022 Suad Berg MD [address] [facility], [place], [address] , [facility] 3 17:05:17 Disorder of carotid artery 517154002 Active 2022 HELEN Plascencia [address] [facility], [place], [address] , [facility] 3 14:32:52 Acute right otitis media 905939574 Active 2022 HELEN Plascencia [address] [employer], [address], [place], [address] , [facility] 3 14:37:46 Transient cerebral ischemia 104985566 Active 2022 HELEN Plascencia [address] [employer], [address], [place], [address] , [facility] 3 14:39:57 Hyperlipidemi a 64528316 Active 2022 HELEN Plascencia [address] [employer], [address], [place], [address] , [facility] 3 14:41:16 Problem Notes None recorded. Procedures Surgical History Date Name Laterality Status Provider Name and Address Organization Details Recorded Time 03/28/19 screening mammography completed Porter Mayberry RN [place] [facility] 03/28/2023 11:45:43 procedure on eyelid completed Not Available [facility] 04/11/2022 19:44:59 Imaging Results None recorded. Procedure Notes None recorded. Medical Equipment None Reported. Allergies Allergen ID Allergen Name Allergen Category Reaction Reaction Severity Criticality Documentation Date Start Date Code Code System Note Provider Name and Address Organization Details Recorded Time 27308 Substance with sulfonami de structure and antibacte rial mechanism of action (substanc e) medicatio n rash Not available Not available 04/11/2022 45696 8003 SNOMED Not Available [facility] 3 19:46:13 Medications Name Sig Start Date [...] Available Not Available Not Available Afluria Quad 9984-4294 (PF) 60 mcg (15 mcg x 4)/0.5 mL IM syringe active Not Available Not Available N ot Available Vitals Date Recorded Body height Body mass index (BMI) Body weight Body temperature Heart rate Oxygen saturation Systolic And Diastolic Provider Name and Address Organization Details Last Updated DateTime 4 162.56 cm 30.6 kg/m2 20089.4 4 g 97.1 [degF] 71 /min 100 % 128/76 mm[Hg] Anjali espino CMA [facility] 4 12:30:56 Date Recorded Body height Body mass index (BMI) Body weight Body temperature Heart rate Oxygen saturation Systolic And Diastolic Provider Name and Address Organization Details Last Updated DateTime 3 162.56 cm 30 kg/m2 05431.6 6 g 97.8 [degF] 65 /min 98 % 122/80 mm[Hg] SANDRA Armstrong [facility] [employer] [facility] 3 16:56:23 Date Recorded Body mass index (BMI) Body height Oxygen saturation Heart rate Body temperature Body weight Systolic And Diastolic Provider Name and Address Organization Details Last Updated DateTime 1 30.6 kg/m2 162.56 cm 98 % 67 /min 97.4 [degF] 49911.4 4 g 160/90 mm[Hg] Not Available [facility] 3 19:45:04 Date Recorded Body mass index (BMI) Body height Oxygen saturation Heart rate Body temperature Body weight Systolic And Diastolic Provider Name and Address Organization Details Last Updated DateTime 2 31.1 kg/m2 162.56 cm 97 % 70 /min 97.8 [degF] 53212.2 2 g 140/76 mm[Hg] Not Available [facility] 3 19:45:04 Date Recorded Body height Body mass index (BMI) Body weight Body temperature Heart rate Oxygen saturation Systolic And Diastolic Provider Name and Address Organization Details Last Updated DateTime 3 162.56 cm 30.7 kg/m2 49118.0 3 g 97 [degF] 89 /min 99 % 152/76 mm[Hg] Paulina Herron MA [facility] [employer] 3 14:25:18 Social History Question Answer Notes LastModified by Organizat ion Details LastModified Time Tobacco Smoking Status Former Smoker Not Available [facility] 04/11/2022 19:44:51 In The 14 Days Before Symptom Onset, Have You Had Close Contact With A Laboratory-confirm ed COVID-19 While That Case Was Ill? No [id number] Information not available 04/11/2022 In The 14 Days Before Symptom Onset, Have You Had Close Contact With A Person Who Is Under Investigation For COVID-19 While That Person Was Ill? No [id number] Information not available 04/11/2022 When Did You Quit Smoking? 15+yearssin basilia mirza 1995 [email or web address] Information not available 02/26/2023 How Much Tobacco Do You Smoke? 0.5 PPD [id number] Information not available 04/11/2022 How Many Years Have You Smoked Tobacco? 8 [id number] Information not available 04/11/2022 Sex: Unknown Functional Status Question Answer Note LastModified by Organizat ion Details LastModified Time What is your level of alcohol consumption? Occasional [id number] Information not available 04/11/2022 Mental Status None recorded. Family History Relationship Description Onset Age of this Age Resolved Age Notes LastModified by Organization Details LastModified Time Maternal Grandmother Family history of malignant neoplasm [id number] Not available 04/11/2022 19:44:59 Maternal Grandmother Alzheimer's disease [id number] Not available 04/11/2022 19:44:59 Maternal Aunt Family history of malignant neoplasm [id number] Not available 04/11/2022 19:44:59 Maternal Aunt Family history of malignant neoplasm [id number] Not available 04/11/2022 19:44:59 Mother Alzheimer's disease [id number] Not available 04/11/2022 19:44:59 Paternal Grandfather Alzheimer's disease [id number] Not available 04/11/2022 19:44:59 Medical History No medical history recorded. Gynecological HistoryNo gynecological history recorded. Obstetrics History GPAL:G 0 P 0 0 0 0 Past Encounters Encounter ID Performer Location Encounter Start Date Encounter Closed Date Diagnosis/Indication Diagnosis SNOMED-CT Code Diagnosis ICD10 Code Diagnosis IMO Codes Diagnosis Note [id number] Suad Berg MD [facility] Family [facility] Roland wilhelm [address] [facility] [place] [address] 08/11/2020 00:00:00 08/11/2020 19:27:24 [id number] Suad Berg MD [facility] [place] [address] [facility] [place] [address] 12/15/2020 00:00:00 12/15/2020 19:45:55 [id number] Suad Berg MD [facility] [place] [address] [facility] [place] [address] 01/26/2022 00:00:00 01/27/2022 10:31:14 [id number] Suad Berg MD [facility] [place] [address] [facility] [place] [address] 05/31/2022 16:49:17 05/31/2022 17:09:20 Hematochezia 683122154 K92.1 [id number] Suad Berg MD [facility] [place] [address] [place] [address] [place] [address] 01/28/2023 14:18:43 01/28/2023 14:52:10 Disorder of carotid artery 563013707 I77.9 right : 70 % blocked Acute righ t otitis media 106067696 H66.91 Transient cerebral ischemia 034072155 G45.9 Hyperlipidemia 74968853 E78.5 [id number] Suad Berg MD [facility] [place] [address] [facility] [place] [address] 02/26/2023 12:25:25 02/26/2023 12:52:53 Acute right otitis media [id number] H66.91 Disorder o f carotid artery [id number] I77.9 right : 70 % blocked Hyperlipidemia [id number] E78.5 Mitral valve prolapse 40 [id number] I34.1 Health Concerns Section Related Observation LastModified by Organization Detai ls LastModified Time None Recorded Concern Status LastModified by Organization Details LastModified Time None Recorded Advance Directives Directive None Recorded Payers Insurance Date Sequence Insurance Name Policy Number Policy Fernandez Covered Member ID Fernandez Member ID Guarantor Name 12/13/2023 1 [place] [id number] Ambreen Hutchison [id number] Ambreen Hutchison Notes Date Note Type [...] but not diarrhea. Suad Berg MD [address], [address], [place], [address], [employer] [facility] [employer] 05/31/2022 18:40:21 01/28/2023 text/html ROS as noted in the HPI right carotid blocked . ; right ear fullness , no fever HELEN Plascencia [address], [address], [place], [address], [employer] 02/07/2023 23:21:06 02/26/2023 text/html ROS as noted in the HPI right carotid only 50 % left 10%, they will not consider surgery till carotid 85% blocked , risk of throwing a clot HELEN Plascencia [address], [address], [place], [address], [employer] [facility] [employer] [facility] 02/26/2023 22:06:30 OBGyn Episode No OBEpisode recorded.
--- OUTSIDE RECORDS SUMMARY | 2025-01-15 01:35 | XMS_ITS | Clinical Summary ---
Author Organization [facility] Address [address] [place] [address] Care Team Providers Care Senior Web Applications Developer Name Role Phone Jayden Cadet DO Primary Care Provider [phone]- [phone] Allergies Active Allergy Reactions Criticality Noted Date Comments Sulfa (Sulfonamide Antibiotics) Rash Medium 04/2020 Medications multivitamin tabletIndicatio ns:Vitamin Deficiency Prevention Take 1 tablet by mouth volunteer specialist before breakfast Active docosahexaenoic acid/epa (FISH OIL ORAL) Take 1 capsule by mouth volunteer specialist before breakfast Active lisinopriL (PRINIVIL,ZESTR IL) 20 mg tablet Take 1 tablet (20 mg total) by mouth daily 3 Active atorvastatin (LIPITOR) 20 mg tablet Take 1 tablet (20 mg total) by mouth daily 3 Active estradiol-noret hindrone (ACTIVELLA) 0.5-0.1 mg per tablet Take 1 tablet by mouth daily Active levETIRAcetam (KEPPRA) 750 mg tabletIndicatio ns:Seizures (HCC) Take 1 tablet (750 mg total) by mouth 2 (two) times a day 180 tablet 3 5 11/17/19 26 Active Active Problems Problem Noted Date Diagnosed Date Seizures 08/23/2023 Bilateral carotid artery stenosis 02/06/2023 Assessment & Plan (02/26/2024 2:30 PM SENIOR GRADUATE ADVISOR): No significant stenosis seen on duplex for the 2nd year in a row. Likely CTA at outside facility in January of 2023 over-read. Patient has remained asymptomatic. No further surveillance required at this time. Patient follow up in the office on as needed basis Assessment & Plan (02/21/2023 9:12 AM SENIOR GRADUATE ADVISOR): Impression: Patient has less than 50% stenosis to bilateral internal carotid arteries seen on carotid duplex and remains asymptomatic. Patient reports having a CTA head and neck at an outside nonB facility which showed 70% stenosis to the right internal carotid artery. Plan: Discussed with the patient surgical intervention is recommended with greater than 70-80% stenosis or if patient is symptomatic. - Patient would like for the office to review CTA. Recommend patient to obtain CTA on a disc from the facility for us to review. - Instructed patient if there are no concern for severe stenosis seen on CTA, we will have patient follow-up in 1 year for re-evaluation with carotid duplex. Patient voices understanding. -recommend patient to continue aspirin and Plavix. Assessment & Plan (02/06/2023 11:55 AM SENIOR GRADUATE ADVISOR): Incidental finding of right internal carotid stenosis on CT scan at an hospital. Denies any current or recent symptoms of amaurosis fugax, slurred speech or unilateral neurological deficits. Plan: Follow-up in the next 2 weeks with carotid duplex. We will work on obtaining images from [facility] of the CTA of the head and neck. Primary hypertension 02/06/2023 Assessment & Plan (02/21/2023 9:08 AM SENIOR GRADUATE ADVISOR): Impression: Chronic and stable. Plan: Continue lisinopril Hypercholesterolemia 02/06/2023 Assessment & Plan (02/21/2023 9:08 AM SENIOR GRADUATE ADVISOR): Impression: Chronic and stable. Plan: Continue atorvastatin. Disorder of carotid artery 01/27/2023 Hematochezia 05/31/2022 Ptosis of both eyelids 05/05/2020 Overview (05/05/2020): Added automatically from request for surgery [id number] Mitral valve prolapse 05/14/2017 Resolved Problems Problem Noted Date Diagnosed Date Resolved Date Seizure-like activity 11/21/20232024 Encounters Date Type Department Care Team Description 11/17/2024 Telephone [facility] Medicine Epilepsy [address] [facility] [address] [place] [address] [place] [address] Sarwat Bundy MD PhD 11/16/2024 1:00 PM CDT Office Visit [facility] Medicine Epilepsy [address] [facility] [address] [place] [address] [place] [address] Sarwat Bundy MD PhD Seizures (HCC) (Primary Dx) from Last 3 Months Surgical History Surgery Date Site/Laterality Comments WISDOM TOOTH EXTRACTION 02/11/1989 - 02/10/1990 CYST REMOVAL 02/12/1984 - 02/10/1985 cyst removed from L 5th digit COLONOSCOPY COSMETIC SURGERY 2020 eyelid surgery for bilateral ptosis Medical History Medical History Date Comments Thyroid disease Motion sickness Ptosis Seizures (HCC) 2023 GERD (gastroesophageal reflux disease) Hypertension 2013 Family History Medical History Relation Name Comments Epilepsy Brother Heart disease Father Dad Hypertension Father Dad Cancer Maternal Grandmother Maternal Hypertension Maternal Grandmother Maternal Cataracts Mother Stroke Mother Cancer Mother's Sister Older sister Anesthesia problems Neg Hx Relation Name Status Comments Brother Father Dad Maternal Grandmother Maternal Mother Mother's Sister Older sister Social History Tobacco Use Types Packs/Day Years Used Date Smoking Tobacco: Former Cigarettes Q uit: 1989 Smokeless Tobacco: Never Tobacco Cessation:Counseling Given: No Alcohol Use Standard Drinks/Week Comments Yes 1 (1 standard drink = 0.6 oz pur e alcohol) AUDIT-C Answer Date Recorded Q1: How often do you have a drink containing alc ohol? 2-4 times a month 11/16/2024 Q2: How many drinks containi ng alcohol do you have on a typical day when you are drinking? 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 Not on file Not on file Last Filed Vital Signs Vital Sign Reading Time Taken Comments Blood Pressure 145/89 11/16/2024 12:38 PM CDT Pulse 65 11/16/2024 12:38 PM CDT Temperature 36.2 C (97.2 F) 06/06/2020 4:55 PM CDT Respiratory Rate 19 11/11/2023 8:37 AM CDT Oxygen Saturation 98% 08/11/2024 2:17 PM CDT Inhaled Oxygen Concentration - - Weight 78.9 kg (174 lb) 11/16/2024 12:38 PM CDT Height 162.6 cm (5' 4) 11/16/2024 12:38 PM CDT Body Mass Index 29.87 11/16/2024 12:38 PM CDT Plan of Treatment Health Maintenance Due Date Last Done Comments Breast Cancer Screening-Mammogram 1964 Cervical Cancer Screening 1964 Colon Cancer Screening-Colonoscopy 1964 Depression Screening 1964 Hepatitis C Screening 1964 DTaP/Tdap/Td Vaccine (1 - Tdap) 10/10/1975 Hepatitis B Screening 1982 Regular Well Visit/Exam 18-64 1982 Zoster Vaccine (1 of 2) 2014 Influenza Vaccine (#1) 2024 4, 11/25/2021, 12/09/2020, Additional history exists Pneumococcal vaccine <65 Aged Out No longer eligible based on patient's age to complete this topic Insurance [facility] CHOICE OOS BLUE ACC CHOICE OOS Care Teams Senior Web Applications Developer Relationship Specialty Start Date End Date Jayden Cadet DO PCP - General Internal Medicine 02/26/24
--- NOTE | 2025-01-15 06:58 | WPDHPUPDATE1 ---
History and Physical Update Update Date/Time: 01/15/25 06:58 Patient seen and examined in pre-operative holding area. No interval change in medical history or symptoms. Patient recalls previous discussion of benefits and alternatives to procedure. Continues to desire to proceed with left third extensor compartment release/decompression. Reviewed procedure, post-op expectations and risks including but not limited to bleeding, infection, injury to tendon/nerve/vessel, decreased hand function, stiffness, RSD, no change or worsening of symptoms, malunion/nonunion, fracture displacement. I discussed the possible use of assistants and their participation in the case. Patient stated understanding and signed the consent form wishing to proceed.
--- NOTE | 2025-01-15 06:59 | W.PM.PROC2 ---
Procedure Note - Detailed Date of Procedure 01/15/25 Pre-op Diagnosis left distal radius fracture Post-op Diagnosis Same Procedure Performed left third extensor compartment release Surgeon Maryjane Vega MD Director Corporate Sales lindsey collins pa-c Anesthesia MAC Description of Procedure INFORMED CONSENT: The patient was seen and examined and marked in the pre-op area.? The patient signed the consent form. PROCEDURE IN DETAIL:The patient taken back to OR on the stretcher in supine position. Time out performed with anesthesia, surgeon and staff agreeing on patient's name site and surgery to be performed SCDs were placed on the lower extremities and inflated. A tourniquet was placed on {left} upper extremity and antibiotics given IV After anesthesia administered sedation I injected {8}cc 1%lido with epi and 0.5% marcaine plain at the operative site The?{left upper extremity}?was prepped and draped in sterile fashion the??{left upper extremity} was? exsanguinated with Esmarch bandage and tourniquet inflated to 250mmHg I made a longitudinal incision over the left 3rd extensor compartment just ulnar to Mari's tubercle through skin and dermis with a 15 blade scalpel. Littler scissors were used to spread down to the extensor retinaculum. The extensor retinaculum was incised and the EPL tendon was identified along with notable hematoma within the sheath. The hematoma was evacuated and irrigated. The EPL appeared intact with good thumb range of motion. The EPL was not transposed but left insight to. Irrigated with normal saline and closed with 3-0 Vicryl for dermis and 4-0 Monocryl for subcuticular closure. Next multiple views of fluoroscopy were taken to evaluate the distal radius fracture noting that no displacement had occurred during the procedure from her preoperative imaging and we would continue with planned conservative treatment of the distal radius fracture. A dressing of Dermabond, 4x4, wilfrid, and a thumb spica splint was applied for patient safety, security, and comfort and secured with an dell bandage after the tourniquet was let down noting the hand was warm and well perfused. The patient was then awaken from anesthesia and transferred to the recovery room in stable condition.? Complications - none EBL- 0cc Disposition - home in stable condition Lindsey Collins PA-C was essential for positioning, retraction, closure and dressing placement. [facility] Billing Surgery - Charge Forward: Surgery Billing ([id number] same for lindsey ayon )
[2025-01-15 13:15] VITALS: BP 152/68; PULSE 64; RESP 16; TEMP 36.3; O2SAT 99
[2025-01-15] MEDS: LACTATED RINGERS 1,000 ML 30 ML IV CONT (13:15)
[2025-01-15] MEDS: ACETAMINOPHEN 500 MG TABLET 1000 MG PO (13:15)
--- NOTE | 2025-01-15 13:56 | P.PNAN_ITS ---
Anes - Initial Pre Proc Eval Procedure: Operation Date: 01/15/25 14:45 Proposed Procedures p Left Third Extensor Compartment Release and Decompression - Maryjane Vega MD Date/Time: 01/15/25 13:56 Surgeon: Maryjane Vega MD Pre Op Diagnosis: left distal radius fracture Patient Data Age: 59 Gender: F Height: 1.63 m Weight: 78.4 kg Last Vital Signs Temp 36.3 C L 01/15/25 13:15 Pulse 64 01/15/25 13:15 Resp 16 01/15/25 13:15 BP 152/68 H 01/15/25 13:15 Pulse Ox 99 01/15/25 13:15 O2 Del Method Room Air 01/15/25 13:15 Allergies Allergy/AdvReac Type Severity Reaction Status Date / Time Sulfa (Sulfonamide Allergy Intermediate Rash Verified 01/15/25 13:24 Antibiotics) Home Medications ?Medication ?Instructions ?Recorded ?Confirmed ?Type multivit with minerals-iron 18 1 tablet PO HS 06/22/22 01/15/25 History mg-folic ac 400 mcg-vit K 25 mcg tablet (Adults Multivitamin) levetiracetam 750 mg tablet 750 mg PO Q12H 11/12/24 History atorvastatin 20 mg tablet See Rx Instructions .Route 1 03/14/24 01/15/25 Rx .COMPLEX #90 tabs estradiol-norethindrone acet 0.5 1 tablet PO .PM 01/1301/15/25 History mg-0.1 mg tablet ibuprofen 400 mg tablet (IBU) 400 mg PO Q4H PRN pain 1 03/16/24 01/13/25 History lisinopril 20 mg tablet See Rx Instructions .Route . COMPLEX 01/13/25 01/15/25 History omega 1-apw-qzu-fish oil 1,200 mg 1 cap PO DAILY 01/1301/15/25 History (144 mg-216 mg) capsule (Fish Oil) Patient hx anesthesia problems: none Family hx anesthesia problems: none Results Review: All pre-operative results and documents have been reviewed as part of the pre- operative evaluation. [facility] Past Medical History Medical History (Reviewed 01/10/25 @ 14:30 by [place], CALENDER WIND UP HELPER, GEOSPATIAL EXTRACTOR ANALYSIS) Seizure disorder Mitral valve prolapse 05/14/2017 GERD (gastroesophageal reflux disease) Hypertension Surgical History Surgical History History of wisdom tooth extraction History of esophagogastroduodenoscopy Family History Family History Father Family history of heart disease in male family member before age 55 Family history of elevated blood lipids Family history of cardiovascular disease Other Family history of malignant neoplasm Social History Social History Social History: Surrogate medical decision maker: Severino Croftlincoln, spouse. Code status: Full code. Smoking packs per day: 0.5 Smoking cigarettes per day: 10.0 Years smoked: 4 Smoking pack-years: 2.00 Smoking status: Former smoker Tobacco type: cigarettes Second hand tobacco smoke exposure: Yes Smoking end date: 02/11/89 Alcohol intake: current Drinks per week: 1 Substance use: never Substance use type: does not use Lack of Transportation: No Lack of Food: Never True Current Housing: I Have Housing Concerned About Future Housing: No Difficulty Paying Gas/Electric Bills: No Difficulty Paying for Meds: No Currently Unemployed: No Education: Bachelor's Degree Difficulty w/ Childcare or Family Care: No Spiritual care concerns: No Anes - Eval Final PreProcedure Day of Procedure 01/15/25 13:56 Patient weight: overweight Heart: regular rate and rhythm Lungs: clear to auscultation Airway: Mallampati scale class II Neurological: alert and oriented Last oral intake: >/= 8 hours ASA classification: III Emergent: no Anesthetic plan: proceed Anesthesia type and monitoring: general LMA and standard monitoring Results Review: All pre-operative results and documents have been reviewed as part of the pre- operative evaluation. Informed Consent: The patient's anesthetic plan and its attendant risks and benefits were di scussed with the patient/family/POA. Questions were solicited and answers provided to the satisfaction of the patient/family/POA.
[2025-01-15] MEDS: ceFAZolin 2 GM in SODIUM CHLORIDE 0.9% IV 50 ML 100 ML IVPB (14:44)
[2025-01-15] MEDS: LIDO 1%/EPINEPHRINE 1:100,000 20 ML VIAL 10 ML INFILTRATE (14:55)
[2025-01-15 15:12] VITALS: BP 120/54; PULSE 81; O2SAT 95
[2025-01-15 15:30] VITALS: BP 125/60; PULSE 69; O2SAT 98
[2025-01-15 16:00] VITALS: BP 147/70; PULSE 67
[2025-01-15] MEDS: oxyCODONE HCL (*CRX) 5 MG TAB IR PO (16:02)
[2025-01-15 16:30] VITALS: BP 150/67; PULSE 63
== END 2025-01-15 16:35 | disposition home or self-care (01) ==
PROVIDERS: PCP Internal Medicine; Visit Provider Plastic Surgery
PROC: (CPT 25000; principal; 2025-01-15 14:45)
DX: S52.502A Unspecified fracture of the lower end of left radius, initial encounter for closed fracture (principal); S60.212A Contusion of left wrist, initial encounter; W19.XXXA Unspecified fall, initial encounter; I10 Essential (primary) hypertension; K21.9 Gastro-esophageal reflux disease without esophagitis; G40.909 Epilepsy, unspecified, not intractable, without status epilepticus; Z79.1 Long term (current) use of non-steroidal anti-inflammatories (NSAID); Z98.890 Other specified postprocedural states; Z86.79 Personal history of other diseases of the circulatory system; Z87.891 Personal history of nicotine dependence; Z80.9 Family history of malignant neoplasm, unspecified; Z82.49 Family history of ischemic heart disease and other diseases of the circulatory system
CPT/HCPCS: 25000; 99199; J0690; A9270; J2003; J2004; J2250; J2405; J2704; J3010; J7120

== ENCOUNTER 2025-01-29 09:46 | Outpatient (CLI) | payer BC, SELFPAY ==
--- NOTE | ~2025-01-29 | XR_ITS ---
EXAMINATION: XR wrist LT min 3V, 01/29/2025 10:00 MUSTANGER HISTORY: S52.502A - Unspecified fracture of the lower end of left ... COMPARISON: No comparisons available. Findings: Impacted healing fracture of the distal radius. No significant degenerative changes. Soft tissues unremarkable. Impression: Healing fracture Reviewed, dictated and finalized at location P. ANGER Impression: Healing fracture
--- OUTSIDE RECORDS SUMMARY | 2025-01-29 10:17 | XMS_ITS | Clinical Summary ---
Author Organization [facility] Address [address] [place] [address] Care Team Providers Care Painting Technician Name Role Phone Jayden Cadet DO Primary Care Provider +1- [phone] Allergies Active Allergy Reactions Criticality Noted Date Comments Sulfa (Sulfonamide Antibiotics) Rash Medium 04/2020 Medications multivitamin tabletIndicatio ns:Vitamin Deficiency Prevention Take 1 tablet by mouth air bag builder before breakfast Active docosahexaenoic acid/epa (FISH OIL ORAL) Take 1 capsule by mouth air bag builder before breakfast Active lisinopriL (PRINIVIL,ZESTR IL) 20 [...] 02/06/2023 Assessment & Plan (02/26/2024 2:30 PM FLIGHT HOSTESS): No significant stenosis seen on duplex for the 2nd year in a row. Likely CTA at outside facility in January of 2023 over-read. Patient has remained asymptomatic. No further surveillance required at this time. Patient follow up in the office on as needed basis Assessment & Plan (02/21/2023 9:12 AM FLIGHT HOSTESS): Impression: Patient has less than 50% stenosis [...] Plavix. Assessment & Plan (02/06/2023 11:55 AM FLIGHT HOSTESS): Incidental finding of right internal carotid stenosis on CT scan at an hospital. Denies any current or recent symptoms of amaurosis fugax, slurred speech or unilateral neurological deficits. Plan: Follow-up in the next 2 weeks with carotid duplex. We will work on obtaining images from [facility] of the CTA of the head and neck. Primary hypertension 02/06/2023 Assessment & Plan (02/21/2023 9:08 AM FLIGHT HOSTESS): Impression: Chronic and stable. Plan: Continue lisinopril Hypercholesterolemia 02/06/2023 Assessment & Plan (02/21/2023 9:08 AM FLIGHT HOSTESS): Impression: Chronic and stable. Plan: Continue atorvastatin. Disorder of carotid artery 01/27/2023 Hematochezia 05/31/2022 Ptosis of both eyelids 05/05/2020 Overview (05/05/2020): Added automatically from request for surgery [id number] Mitral valve prolapse 05/14/2017 Resolved Problems Problem Noted Date Diagnosed Date Resolved Date Seizure-like activity 11/21/20232024 Encounters Date Type Department Care Team Description 11/17/2024 Telephone [facility] Medicine Epilepsy [address] [facility] [address] [place] [address] [place] [address] Sarwat Bundy MD PhD 11/16/2024 1:00 PM CDT Office Visit [facility] Medicine Epilepsy [address] 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 CHOICE OOS BLUE ACC CHOICE OOS Care Teams Painting Technician Relationship Specialty Start Date End Date Jayden Cadet DO PCP - General Internal Medicine 02/26/24
== END 2025-01-29 09:47 | disposition home or self-care (01) ==
PROVIDERS: PCP Internal Medicine; Visit Provider Physician Assistant Surgical
DX: S52.502D Unspecified fracture of the lower end of left radius, subsequent encounter for closed fracture with routine healing (principal); X58.XXXD Exposure to other specified factors, subsequent encounter
CPT/HCPCS: 73110